=== PATIENT | female | born 1950 | race Caucasian/White ===

== ENCOUNTER 2016-06-25 19:48 | Emergency (ER) | payer MEDICARE ==
--- NOTE | 2016-06-25 20:18 | ED.PDOC ---
History of Present Illness - General Chief Complaint: Abdominal Pain Stated Complaint: abd pain, low back pain Time Seen by Provider: 06/25/16 20:18 Information Source: patient Exam Limitations: no limitations - History of Present Illness Initial Comments: Precious Andrew 65 y/o female stated that she had squeezing RLQ pain radn to her llq for the last 4 days no nausea/vomiting was able to eat no dysuria,no diarrhea, no constipation. Abdominal Pain Onset Location: RLQ Pain Radiation: LLQ Quality: intermittent, vague Timing/Duration: other - 4 days ago Improving Factors: nothing Worsening Factors: nothing Associated Symptoms: nausea/vomiting - x 1 Review of Systems - Review of Systems Constitutional: States: no symptoms reported EENTM: States: no symptoms reported Respiratory: States: no symptoms reported Cardiology: States: no symptoms reported Gastrointestinal/Abdominal: States: see HPI Genitourinary: States: no symptoms reported Musculoskeletal: States: no symptoms reported Skin: States: no symptoms reported Neurological: States: no symptoms reported Endocrine: States: no symptoms reported Hematologic/Lymphatic: States: no symptoms reported Past Medical History (General) - Patient Medical History Hx Seizures: No Hx Stroke: No Hx Dementia: No Hx Asthma: No Hx of COPD: No Hx Cardiac Disorders: Yes Hx Congestive Heart Failure: No Hx Pacemaker: Yes - Pcmkr/Defib Hx Hypertension: Yes Hx Thyroid Disease: No Hx Diabetes: Yes Hx Gastroesophageal Reflux: No Hx Renal Disease: No Hx Cancer: No Hx of HIV: No Hx Hepatitis C: No Hx MRSA: No Hx Other PMH: Yes - rheumatoid arthritis Surgical History: tonsillectomy, Hysterectomy, other - knee,hysterectomy - Vaccination History Hx Tetanus, Diphtheria Vaccination: Yes Hx Influenza Vaccination: Yes Hx Pneumococcal Vaccination: Yes - Social History Hx Tobacco Use: No Hx Alcohol Use: No Hx Substance Use: No Hx Substance Use Treatment: No Hx Depression: Yes Hx Physical Abuse: No Hx Emotional Abuse: No - Female History Patient : No Family Medical History - Family History Father Family History: Unknown Living Status: Hx Cardiac Disease: Yes Hx Family Cancer: Yes - colon Hx Family;Other: brother with RA Mother Family History: Unknown Hx Family Cancer: Yes - colon -dad Physical Exam - Physical Exam General Appearance: Alert, Comfortable, No apparent distress Eyes, Ears, Nose, Throat Exam: PERRL/EOMI, normal ENT inspection, TMs normal Neck: non-tender, full range of motion, supple Respiratory: chest non-tender, lungs clear, normal breath sounds Cardiovascular/Chest: normal peripheral pulses, regular rate, rhythm, no edema, no gallop, no murmur Peripheral Pulses: No deficit Gastrointestinal/Abdominal: normal bowel sounds, soft, no organomegaly, tenderness - RLQ no peritoneal signs Back Exam: normal inspection, no CVA tenderness Extremity: non-tender, other - multiple bony deformities fingers both hands Neurologic: no motor/sensory deficits, alert, normal mood/affect, oriented x 3 Skin Exam: normal color, warm/dry Lymphatic: no adenopathy Special Observations: No evidence of discomfort Progress - Results/Orders Results/Orders: Vital Signs - 8 hr 06/25/16 06/25/16 06/25/16 20:11 21:25 22:37 Temperature 99.3 F Pulse Rate [ 95 H 86 91 H left] Respiratory 18 18 20 Rate Blood Pressure 124/85 151/87 153/84 [left] O2 Sat by Pulse 98 95 97 Oximetry 06/25/16 20:22 IV Care:Saline Lock per Protoc QSHIFT 06/25/16 21:08 URINE CULTURE W/COLONY COUNT Stat 06/25/16 23:09 URINE CULTURE W/COLONY COUNT Stat 06/25/16 23:10 Meropenem [Merrem] 500 mg Sodium Chl 0.9% 50Ml Min-Bag+ [NS 50ml MINI-BAG+] 50 ml IVPB ONCE Laboratory Results WBC 11.7 K/mm3 (4.8-10.8) H 06/25/16 20:21 RBC 4.62 M/mm3 (4.20-5.40) 06/25/16 20:21 Hgb 13.6 gm/dL (12.0-16.0) 06/25/16 20:21 Hct 41.2 % (36.0-47.0) 06/25/16 20:21 MCV 89.2 fl (81.0-99.0) 06/25/16 20:21 MCH 29.3 pg (27.0-31.0) 06/25/16 20:21 MCHC 32.9 g/dL (33.0-37.0) L 06/25/16 20:21 RDW 15.4 % (11.5-14.5) H 06/25/16 20:21 Plt Count 274 K/mm3 (130-400) 06/25/16 20:21 MPV 7.1 fl (7.40-10.4) L 06/25/16 20:21 Absolute Neuts (auto) 8.00 K/uL (1.8-6.8) H 06/25/16 20:21 Absolute Lymphs (auto) 2.50 K/uL (1.0-3.4) 06/25/16 20:21 Absolute Monos (auto) 1.00 K/uL (0.2-0.8) H 06/25/16 20:21 Absolute Eos (auto) 0.20 K/uL (0.0-0.4) 06/25/16 20: Absolute Basos (auto) 0.10 K/uL (0.0-0.1) 06/25/16 20:21 Neutrophils % 68.2 % (42.0-78.0) 06/25/16 20:21 Lymphocytes % 21.3 % (20.0-50.0) 06/25/16 20:21 Monocytes % 8.4 % (2.0-9.0) 06/25/16 20:21 Eosinophils % 1.4 % (1.0-5.0) 06/25/16 20: Basophils % 0.7 % (0.0-2.0) 06/25/16 20:21 Sodium 138 mmol/L (135-145) 06/25/16 20:21 Potassium 3.5 mmol/L (3.6-5.0) L 06/25/16 20:21 Chloride 102 mmol/L (101-111) 06/25/16 20:21 Carbon Dioxide 27 mmol/L (21-31) 06/25/16 20:21 Anion Gap 12.5 (12-18) 06/25/16 20:21 BUN 16 mg/dL (7-18) 06/25/16 20:21 Creatinine 0.83 mg/dL (0.6-1.3) 06/25/16 20:21 BUN/Creatinine Ratio 19.3 (10-20) 06/25/16 20:21 Random Glucose 121 mg/dL (70-105) H 06/25/16 20:21 Serum Osmolality 278.1 mOsm/L (275-295) 06/25/16 20:21 Calcium 9.0 mg/dL (8.4-10.2) 06/25/16 20:21 Total Bilirubin 0.5 mg/dL (0.2-1.0) 06/25/16 20:21 AST 20 IU/L (10-42) 06/25/16 20:21 ALT 13 IU/L (10-60) 06/25/16 20:21 Alkaline Phosphatase 49 IU/L (42-121) 06/25/16 20:21 Serum Total Protein 7.9 gm/dL (6.4-8.2) 06/25/16 20:21 Albumin 3.6 g/dl (3.2-5.5) 06/25/16 20:21 Globulin 4.3 gm/dL (2.3-3.5) H 06/25/16 20:21 Albumin/Globulin Ratio 0.8 (1.1-1.9) L 06/25/16 20:21 Urine Color Yellow (Yellow) 06/25/16 21:08 Urine Appearance Cloudy (Clear) 06/25/16 21:08 Urine pH 5.5 (4.5-7.8) 06/25/16 21:08 Ur Specific [place] 1.020 (1.005-1.030) 06/25/16 21:08 Urine Protein 100 mg/dL H 06/25/16 21:08 Urine Glucose (UA) Negative mg/dL (Negative) 06/25/16 21:08 Urine Ketones Negative mg/dL (NEGATIVE) 06/25/16 21:08 Urine Blood Large (Negative) H 06/25/16 21:08 Urine Nitrite Positive H 06/25/16 21:08 Urine Bilirubin Negative (NEGATIVE) 06/25/16 21:08 Urine Urobilinogen 0.2 mg/dL (0.2-1.0) 06/25/16 21:08 Ur Leukocyte Esterase Small (Negative) H 06/25/16 21:08 Urine RBC 20-30 /hpf H 06/25/16 21:08 Urine WBC Tntc /hpf H 06/25/16 21:08 Ur Epithelial Cells 10-20 /hpf 06/25/16 21:08 Urine Bacteria 4+ H 06/25/16 21:08 Departure - Departure Clinical Impression: Abdominal pain Qualifiers: Abdominal location: right lower quadrant Qualified Code(s): R10.31 - Right lower quadrant pain Urinary tract infection Qualifiers: Urinary tract infection type: site unspecified Hematuria presence: with hematuria Qualified Code(s): N39.0 - Urinary tract infection, site not specified Time of Disposition: 23:41 Disposition: Discharge to Home or Self Care Condition: Fair Departure Forms: ED Discharge - Pt. Copy, Patient Portal Self Enrollment Instructions: DI for Abdominal Pain-Adult Referrals: Ady Sahu MD [Primary Care Provider] - 1-2 Weeks Prescriptions: Nitrofurantoin Monohydrate Mac [Macrobid] 100 mg PO BID #20 cap Home Medications: Ambulatory Orders Aspirin [Aspir-81] 81 mg PO DAILY 02/08/12 Citalopram Hydrobromide [Celexa] 40 mg PO DAILY 02/08/12 Meloxicam [Mobic] 15 mg PO DAILY 02/08/12 Prednisone 5 mg PO DAILY PRN 02/08/12 Methotrexate Sodium [Methotrexate] 20 mg PO WKLY 08/03/13 Gabapentin 300 mg PO TID 04/22/14 Nitrofurantoin Monohydrate Mac [Macrobid] 100 mg PO BID #20 cap 06/25/16 Nitroglycerin [Nitrostat] 1 ea SL PRN PRN 06/25/16 Additional Instructions: RETURN TO EMERGENCY ROOM NEEDED;FOLLOW UP WITH PRIMARY MD 06/27/2016 patient to call for appointment
--- NOTE | 2016-06-25 20:37 | RAD ---
EXAM: Single view chest. INDICATION: Chest pain. COMPARISON: Chest x-ray: 05/24/2014. FINDINGS: Cardiac silhouette: Mildly enlarged Oksana: Unremarkable. Lobar consolidation: None. Pleural effusion: None. Pneumothorax: None. Other: None. Bones: Unremarkable. Other: None. IMPRESSION: 1. No acute cardiopulmonary process. Electronically signed by: Ash Rodrigues MD 06/25/2016 8:36 PM CDT
[2016-06-25] MEDS ORDERED: MEROPENEM 500 MG in SODIUM CHL 0.9% 50ML MIN-BAG+ 50 ML IVPB ONE (23:10)
[2016-06-25] MEDS ORDERED: SODIUM CHL 0.9% 50ML MIN-BAG+ 50 ML IVPB ONE (23:37)
[2016-06-25] MEDS ORDERED: MEROPENEM 500 MG VIAL IVPB ONE (23:37)
[2016-06-26] MEDS ORDERED: SODIUM CHLORIDE 0.9% 10 ML VIAL ONE (00:03)
[2016-06-26 00:19] VITALS: BP 123/85; TEMP 98.8; O2SAT 95
== END 2016-06-26 00:19 | disposition home or self-care (01) ==
LOC: ER 19:48
DX: N39.0 Urinary tract infection, site not specified (principal); M06.9 Rheumatoid arthritis, unspecified; I10 Essential (primary) hypertension; E11.9 Type 2 diabetes mellitus without complications; Z95.810 Presence of automatic (implantable) cardiac defibrillator
CPT/HCPCS: 71010; 80053; 81001; 85025; 87086; 87088; 87186; J2185; J7050

== ENCOUNTER 2017-01-26 18:47 | Emergency (ER) | payer MEDICARE ==
[2017-01-26 19:10] VITALS: TEMP 97.2
[2017-01-26] MEDS ORDERED: FLUCONAZOLE 100 MG TAB PO ONE (19:18)
--- NOTE | 2017-01-26 19:32 | RAD ---
EXAM DESCRIPTION: Chest,1 View CLINICAL HISTORY: body aches, ra COMPARISON: 06/25/2016 FINDINGS: Cardiac silhouette is within normal limits. There is no focal parenchymal or pleural disease. Visualized osseous structures are within normal limits. IMPRESSION: No evidence of acute cardiopulmonary disease. Electronically signed by: Osvaldo Degroot 01/26/2017 7:30 PM [employer]
[2017-01-26] MEDS ORDERED: SODIUM CHLORIDE 0.9% 1000ML 1,000 ML IVS ONE (19:55)
[2017-01-26] MEDS ORDERED: MAGNESIUM SULFATE PREMIX 2GM 2 GM in PREMIX BAG 1 BAG IVPB ONE (19:55)
[2017-01-26] MEDS ORDERED: predniSONE 20 MG TAB PO ONE (19:55)
[2017-01-26] MEDS ORDERED: MAGNESIUM SULFATE PREMIX 2GM 50 ML IVPB ONE (20:02)
--- NOTE | 2017-01-26 20:15 | ED.PDOC ---
History of Present Illness - General Chief Complaint: Back Pain or Injury Stated Complaint: generalized pain Time Seen by Provider: 01/26/17 18:54 Source: patient Exam Limitations: no limitations - History of Present Illness Initial Comments: the patient is a 66-year-old female presenting to the emergency room secondary to 2 weeks of symptoms area symptoms started as a cough congestion with a mild sore throat. The patient does have rheumatoid arthritis and does take immunosuppressants of prednisone 5 mg daily and methotrexate weekly. She has had some aphthous ulcers in her mouthfor the last week. She has not been taking her folic acid for the last 10 days. No other focal symptoms other than a flare of her rheumatoid pains. Timing/Duration: unsure Severity: moderate Improving Factors: nothing Worsening Factors: movement Associated Symptoms: diaphoresis, fever/chills, loss of appetite, malaise, weakness Allergies/Adverse Reactions: Allergies Penicillins Allergy (Verified 06/25/16 20:15) Home Medications: Ambulatory Orders Aspirin [Aspir-81] 81 mg PO DAILY 02/08/12 Citalopram Hydrobromide [Celexa] 40 mg PO DAILY 02/08/12 Meloxicam [Mobic] 15 mg PO DAILY 02/08/12 Prednisone 5 mg PO DAILY PRN 02/08/12 Methotrexate Sodium [Methotrexate] 20 mg PO WKLY 08/03/13 Gabapentin 300 mg PO TID 04/22/14 Nitrofurantoin Monohydrate Mac [Macrobid] 100 mg PO BID #20 cap 06/25/16 Nitroglycerin [Nitrostat] 1 ea SL PRN PRN 06/25/16 Levofloxacin [Levaquin] 250 mg PO DAILY #5 tablet 01/26/17 predniSONE 20 mg PO DAILY #5 tab 01/26/17 Review of Systems - Review of Systems Constitutional: States: chills, fever, malaise, weakness EENTM: States: nose congestion, throat pain Respiratory: States: cough - mild Cardiology: States: no symptoms reported Gastrointestinal/Abdominal: States: nausea - mild Genitourinary: States: no symptoms reported Musculoskeletal: States: back pain, joint pain, joint swelling, muscle pain Skin: States: no symptoms reported Neurological: States: anxiety, weakness - eneralized Endocrine: States: intolerance to cold All other Systems: No Change from Baseline Past Medical History (General) - Patient Medical History Hx Seizures: No Hx Stroke: No Hx Dementia: No Hx Asthma: No Hx of COPD: No Hx Cardiac Disorders: Yes Hx Congestive Heart Failure: No Hx Pacemaker: No Hx Hypertension: Yes Hx Thyroid Disease: No Hx Diabetes: No Hx Gastroesophageal Reflux: No Hx Renal Disease: No Hx Cancer: No Hx of HIV: No Hx Hepatitis C: No Hx MRSA: No Surgical History: tonsillectomy, Hysterectomy, other - Vaccination History Hx Tetanus, Diphtheria Vaccination: No Hx Influenza Vaccination: No Hx Pneumococcal Vaccination: Yes Immunizations Up to Date: Yes - Social History Hx Tobacco Use: No Hx Alcohol Use: No Hx Substance Use: No Hx Substance Use Treatment: No Hx Depression: Yes Hx Physical Abuse: No Hx Emotional Abuse: No - Female History Patient : No Family Medical History - Family History Father Family History: Unknown Living Status: Hx Cardiac Disease: Yes Hx Family Cancer: Yes - colon Hx Family;Other: brother with RA Mother Family History: Unknown Hx Family Cancer: Yes - colon -dad Physical Exam - Physical Exam General Appearance: Alert, Anxious, No apparent distress Eye Exam: bilateral normal Ears, Nose, Throat: hearing grossly normal, other - the patient may have a small amount of thrush present. She does have several aphthous ulcers. Neck: supple Respiratory: lungs clear, normal breath sounds, no respiratory distress, no accessory muscle use Cardiovascular/Chest: normal peripheral pulses, regular rate, rhythm, no edema Peripheral Pulses: radial,right: 2+, radial,left: 2+, dorsalis pedis,right: 2+, dorsalis pedis,left: 2+ Gastrointestinal/Abdominal: non tender, soft Rectal Exam: deferred Back Exam: other - diffuse chronic back discomfort no evidence of any trauma Extremity: no pedal edema, normal capillary refill, other - chronic changes from rheumatoid arthritis. No acute changes. Neurologic: pairer substandard II-XII nml as tested, alert, normal mood/affect, oriented x 3 Skin Exam: normal color Comments: Vital Signs - 24 hr 01/26/17 01/26/17 19:04 19:15 Temperature 97.2 F L Pulse Rate [ 99 H Left Radial] Respiratory 16 16 Rate Blood Pressure 168/83 [Left Arm] O2 Sat by Pulse 96 Oximetry Progress - Progress Progress: 01/26/17 21:02 the patient is a 66-year-old female presenting with increased myalgias as well as aphthous ulcers and possibly some thrush. She has had some low-grade fevers and is concern for underlying untreated infection given her immunosuppressant use. she is mildly dehydrated and has received a liter of IV fluids. She has a mildly low magnesium and was given 2 g IV. She was given 1 dose of Diflucan for the possibility of mild thrush. She does have a small urinary tract infection and was given 1 dose of oral Levaquin here and will be placed on 4 days additionally has an outpatient. She does need to increase her prednisone dosage to 20 mg daily for the next 4 days and she likely does have some adrenal insufficiency that may be giving her some of her above symptoms. She should follow-up with her primary care doctor early next week. ER warnings were given for any significant worsening. She does need to resume her folic acid immediately. - Results/Orders Results/Orders: Laboratory Tests 01/26/17 01/26/17 01/26/17 19:30 19:30 19:30 WBC 9.0 RBC 4.47 Hgb 13.4 Hct 39.6 MCV 88.5 MCH 30.1 MCHC 33.9 RDW 15.7 H Plt Count 353 MPV 6.5 L Absolute Neuts (auto) 6.20 Absolute Lymphs (auto) 1.70 Absolute Monos (auto) 0.90 H Absolute Eos (auto) 0.20 Absolute Basos (auto) 0.10 Neutrophils % 69.3 Lymphocytes % 18.7 L Monocytes % 9.5 H Eosinophils % 1.8 Basophils % 0.7 Sodium 133 L Potassium 4.0 Chloride 98 L Carbon Dioxide 25 Anion Gap 14.0 BUN 20 H Creatinine 0.87 BUN/Creatinine Ratio 23.0 H Random Glucose 86 Serum Osmolality 268.3 L Calcium 8.8 Magnesium Total Bilirubin 0.7 AST 15 ALT 9 L Alkaline Phosphatase 38 L Creatine Kinase 35 CK-MB (CK-2) 2.0 CK-MB (CK-2) % Not Reportable Troponin I < 0.02 Serum Total Protein 8.1 Albumin 3.3 Globulin 4.8 H Albumin/Globulin Ratio 0.7 L Urine Color Urine Appearance Urine pH Ur Specific [place] Urine Protein Urine Glucose (UA) Urine Ketones Urine Blood Urine Nitrite Urine Bilirubin Urine Urobilinogen Ur Leukocyte Esterase Urine RBC Urine WBC Ur Epithelial Cells Urine Bacteria 01/26/17 01/26/17 19:30 20:14 WBC RBC Hgb Hct MCV MCH MCHC RDW Plt Count MPV Absolute Neuts (auto) Absolute Lymphs (auto) Absolute Monos (auto) Absolute Eos (auto) Absolute Basos (auto) Neutrophils % Lymphocytes % Monocytes % Eosinophils % Basophils % Sodium Potassium Chloride Carbon Dioxide Anion Gap BUN Creatinine BUN/Creatinine Ratio Random Glucose Serum Osmolality Calcium Magnesium 1.6 L Total Bilirubin AST ALT Alkaline Phosphatase Creatine Kinase CK-MB (CK-2) CK-MB (CK-2) % Troponin I Serum Total Protein Albumin Globulin Albumin/Globulin Ratio Urine Color Yellow Urine Appearance Clear Urine pH 5.5 Ur Specific [place] 1.020 Urine Protein Negative Urine Glucose (UA) Negative Urine Ketones 80 H Urine Blood Negative Urine Nitrite Negative Urine Bilirubin Moderate Urine Urobilinogen 0.2 Ur Leukocyte Esterase Negative Urine RBC 0 Urine WBC 3-5 H Ur Epithelial Cells 1-3 Urine Bacteria 2+ H hest x-ray appears benign. Departure - Departure Clinical Impression: Hypomagnesemia, Dehydration UTI (urinary tract infection) Qualifiers: Urinary tract infection type: acute cystitis Hematuria presence: without hematuria Qualified Code(s): N30.00 - Acute cystitis without hematuria Disposition: Discharge to Home or Self Care Condition: Fair Departure Forms: ED Discharge - Pt. Copy, Patient Portal Self Enrollment Instructions: DI for Low Back Pain, Urinary Tract Infection Diet: regular diet Activity: increase activity as tolerated Referrals: Ady Sahu MD [Primary Care Provider] - 1-2 Weeks Prescriptions: Levofloxacin [Levaquin] 250 mg PO DAILY #5 tablet predniSONE 20 mg PO DAILY #5 tab Home Medications: Ambulatory Orders Aspirin [Aspir-81] 81 mg PO DAILY 02/08/12 Citalopram Hydrobromide [Celexa] 40 mg PO DAILY 02/08/12 Meloxicam [Mobic] 15 mg PO DAILY 02/08/12 Prednisone 5 mg PO DAILY PRN 02/08/12 Methotrexate Sodium [Methotrexate] 20 mg PO WKLY 08/03/13 Gabapentin 300 mg PO TID 04/22/14 Nitrofurantoin Monohydrate Mac [Macrobid] 100 mg PO BID #20 cap 06/25/16 Nitroglycerin [Nitrostat] 1 ea SL PRN PRN 06/25/16 Levofloxacin [Levaquin] 250 mg PO DAILY #5 tablet 01/26/17 predniSONE 20 mg PO DAILY #5 tab 01/26/17 Additional Instructions: the patient is a 66-year-old female presenting with increased myalgias as well as aphthous ulcers and possibly some thrush. She has had some low-grade fevers and is concern for underlying untreated infection given her immunosuppressant use. she is mildly dehydrated and has received a liter of IV fluids. She has a mildly low magnesium and was given 2 g IV. She was given 1 dose of Diflucan for the possibility of mild thrush. She does have a small urinary tract infection and was given 1 dose of oral Levaquin here and will be placed on 4 days additionally has an outpatient. She does need to increase her prednisone dosage to 20 mg daily for the next 4 days and she likely does have some adrenal insufficiency that may be giving her some of her above symptoms. She should follow-up with her primary care doctor early next week. ER warnings were given for any significant worsening. She does need to resume her folic acid immediately.
[2017-01-26 20:24] VITALS: O2SAT 97
[2017-01-26] MEDS ORDERED: levoFLOXacin 500 MG TAB PO ONE (20:57)
[2017-01-26 21:24] VITALS: BP 149/85
== END 2017-01-26 21:23 | disposition home or self-care (01) ==
LOC: ER 18:47
DX: N30.00 Acute cystitis without hematuria (principal); E83.42 Hypomagnesemia; E86.0 Dehydration; M06.9 Rheumatoid arthritis, unspecified; I10 Essential (primary) hypertension
CPT/HCPCS: 36415; 71010; 80053; 81001; 82550; 82553; 83735; 84484; 85025; 87040; 87502; J3475; J7030; J7512

== ENCOUNTER 2017-06-05 21:46 | Emergency (ER) | payer MEDICARE ==
[2017-06-05] MEDS ORDERED: MORPHINE SULFATE INJ 10 MG/ML VIAL IV ONE (22:06)
--- NOTE | 2017-06-05 22:10 | ED.PDOC ---
History of Present Illness - General Chief Complaint: Chest Pain/[place] Stated Complaint: CP, RA pain Time Seen by Provider: 06/05/17 22:04 Source: patient Exam Limitations: no limitations - History of Present Illness Timing/Duration: other - SINCE THIS AM Severity/Quality: burning Location: substernal, epigastric, back Chest Pain Radiation: back Activities at Onset: none Prior Chest Pain/Cardiac Workup: other - HAD CATH APPROX 6 YEARS AGO WHICH SHOWED A "BLOCKAGE" BUT WAS NOT SIGN ENOUGH TO STENT. Improving Factors: nothing - HAS NTG BUT HAS . Worsening Factors: nothing Aspirin Treatment Today: no aspirin today Associated Symptoms: diaphoresis Allergies/Adverse Reactions: Allergies Penicillins Allergy (Verified 06/05/17 22:08) Home Medications: Ambulatory Orders Esomeprazole Magnesium [Nexium] 40 mg PO DAILY #15 cap 06/06/17 Review of Systems - Review of Systems Constitutional: Denies: chills, diaphoresis, fever EENTM: States: no symptoms reported Respiratory: Denies: cough, short of breath, wheezing Cardiology: States: chest pain. Denies: palpitations, syncope Gastrointestinal/Abdominal: Denies: abdominal pain, diarrhea, nausea, vomiting Genitourinary: States: no symptoms reported Musculoskeletal: States: no symptoms reported Skin: States: other - DIAPHORESIS Neurological: States: no symptoms reported Endocrine: States: no symptoms reported Hematologic/Lymphatic: States: no symptoms reported Past Medical History (General) - Patient Medical History Hx Seizures: No Hx Stroke: No Hx Dementia: No Hx Asthma: No Hx of COPD: No Hx Cardiac Disorders: Yes Hx Congestive Heart Failure: No Hx Pacemaker: No Hx Hypertension: Yes Hx Thyroid Disease: No Hx Diabetes: No Hx Gastroesophageal Reflux: No Hx Renal Disease: No Hx Cancer: No Hx of HIV: No Hx Hepatitis C: No Hx MRSA: No Surgical History: tonsillectomy, Hysterectomy - Vaccination History Hx Tetanus, Diphtheria Vaccination: No Hx Influenza Vaccination: No Hx Pneumococcal Vaccination: Yes - Social History Hx Tobacco Use: No Hx Alcohol Use: No Hx Substance Use: No Hx Substance Use Treatment: No Hx Depression: Yes Hx Physical Abuse: No Hx Emotional Abuse: No - Female History Patient : No Family Medical History - Family History Father Family History: Unknown Living Status: Hx Cardiac Disease: Yes Hx Family Cancer: Yes - colon Hx Family;Other: brother with RA Mother Family History: Unknown Hx Family Cancer: Yes - colon -dad Physical Exam - Physical Exam General Appearance: Alert, No apparent distress Eyes, Ears, Nose, Throat Exam: PERRL/EOMI, normal ENT inspection Neck: non-tender, full range of motion, supple Respiratory: lungs clear, normal breath sounds Cardiovascular/Chest: no murmur, tachycardia Gastrointestinal/Abdominal: normal bowel sounds, non tender, soft, no organomegaly, other - NO EPIGASTRIC TTP Extremity: normal range of motion, non-tender, normal inspection Neurologic: alert, normal mood/affect Skin Exam: normal color, warm/dry Lymphatic: no adenopathy Progress - Progress Progress: 06/05/17 23:38 STILL HAVING SOME PAIN BUT BETTER AFTER MSO4, WILL TRY SLIDER 06/06/17 00:20 CURRENTLY PAIN FREE AFTER SLIDER. TROP NEG. - EKG/XRAY/CT EKG: Sinus, Tachy - RATE 112, NL AXIS, NL INTERVALS, , no ST T wave changes - NAIP, 05/24/14 XRAY: chest - JEANETTE Departure - Departure Clinical Impression: GERD (gastroesophageal reflux disease) Qualifiers: Esophagitis presence: esophagitis presence not specified Qualified Code(s): K21.9 - Gastro-esophageal reflux disease without esophagitis Hypertension Qualifiers: Hypertension type: essential hypertension Qualified Code(s): I10 - Essential ( primary) hypertension CAD (coronary artery disease) Qualifiers: Coronary Disease-Associated Artery/Lesion type: [place] artery [place] vs. transplanted heart: [place] heart Associated angina: without angina Qualified Code(s): I25.10 - Atherosclerotic heart disease of [place] coronary artery without angina pectoris Time of Disposition: 00:24 Disposition: Discharge to Home or Self Care Condition: Good Departure Forms: ED Discharge - Pt. Copy, Patient Portal Self Enrollment Instructions: DI for Chest Pain, DI for Gastroesophageal Reflux Disease (GERD) Referrals: Ady Sahu MD [Primary Care Provider] - 1-2 Weeks Prescriptions: Esomeprazole Magnesium [Nexium] 40 mg PO DAILY #15 cap Home Medications: Ambulatory Orders Esomeprazole Magnesium [Nexium] 40 mg PO DAILY #15 cap 06/06/17
--- NOTE | 2017-06-05 22:21 | RAD ---
EXAM DESCRIPTION: Chest,1 View CLINICAL HISTORY: CP COMPARISON: 01/26/2017 FINDINGS: Cardiac silhouette is within normal limits. There is no focal parenchymal or pleural disease. Visualized osseous structures are within normal limits. IMPRESSION: No evidence of acute cardiopulmonary disease. Electronically signed by: Osvaldo Degroot 06/05/2017 10:20 PM CDT
[2017-06-05] MEDS ORDERED: ASPIRIN TABLET 325 MG TAB ONE (23:10)
[2017-06-05] MEDS ORDERED: ASPIRIN TABLET 325 MG TAB PO ONE (23:16)
[2017-06-05] MEDS ORDERED: ALUM & MAG HYDROX-SIMETHICONE 30 ML, LIDOCAINE VISCOUS 2% 15 ML PO ONE ×2 (23:36)
[2017-06-05] MEDS ORDERED: ALUM & MAG HYDROX-SIMETHICONE 30 ML UD ONE (23:46)
[2017-06-05] MEDS ORDERED: LIDOCAINE HCL 2% (MOUTH-THROAT) 15 ML UD ONE (23:46)
[2017-06-06] MEDS ORDERED: ACETAMINOPHEN 500 MG TAB ONE (00:51)
[2017-06-06] MEDS ORDERED: ACETAMINOPHEN 500 MG TAB PO ONE (00:58)
[2017-06-06 01:20] VITALS: BP 133/78; O2SAT 98
[2017-06-06 01:21] VITALS: TEMP 99.5
== END 2017-06-06 01:21 | disposition home or self-care (01) ==
LOC: ER 21:46
DX: K21.9 Gastro-esophageal reflux disease without esophagitis (principal); I25.10 Atherosclerotic heart disease of native coronary artery without angina pectoris; I10 Essential (primary) hypertension; Z88.0 Allergy status to penicillin
CPT/HCPCS: 36415; 71045; 80053; 82150; 83690; 84484; 85025; 93005; J2270

== ENCOUNTER 2017-10-09 21:07 | Observation (INO) | payer MEDICARE ==
[2017-10-09] MEDS ORDERED: ONDANSETRON ODT 8 MG TAB SL ONE (21:26)
[2017-10-09] MEDS ORDERED: SODIUM CHLORIDE 0.9% 1000ML 1,000 ML IVS ONE (21:26)
--- NOTE | 2017-10-09 22:19 | RAD ---
EXAM DESCRIPTION: Abdomen Series CLINICAL HISTORY: 67 years Female, n/v 3 weeks COMPARISON: AP chest May 24, 2014 FINDINGS: No consolidation. No pneumothorax. No significant pleural effusion. Cardiomediastinal silhouette is unremarkable. Bowel gas pattern appears nonobstructive. No free intraperitoneal air. Degenerative changes of the lumbar spine noted with dextrocurvature. IMPRESSION: No acute findings. Electronically signed by: Rogerio Byrd MD 10/09/2017 10:18 PM CDT
[2017-10-09] MEDS ORDERED: POTASSIUM CHLORIDE ELIXIR 20 MEQ/15 ML UD PO ONE (22:34)
[2017-10-09] MEDS ORDERED: MAGNESIUM SULFATE PREMIX 4GM 4 GM in PREMIX BAG 1 BAG IVPB ONE (22:34)
[2017-10-09] MEDS ORDERED: SUCRALFATE 1 GM/10 ML 1 GM UD PO ONE (22:35)
[2017-10-09] MEDS ORDERED: PANTOPRAZOLE SODIUM TAB 40 MG PO ONE (22:35)
[2017-10-09] MEDS ORDERED: MAGNESIUM SULFATE 2 GM IVPB ONE (22:49)
[2017-10-09] MEDS ORDERED: KCL 40 MEQ/WATER FOR INJ 100ML 40 MEQ in PREMIX BAG 1 BAG IVPB ONE (23:46)
[2017-10-09] MEDS ORDERED: PANTOPRAZOLE SODIUM IV 40 MG VIAL IV ONE (23:47)
[2017-10-09] MEDS ORDERED: PROMETHAZINE HCL 25 MG TAB PO ONE (23:47)
[2017-10-09] MEDS ORDERED: DEXAMETHASONE INJ 10 MG/ML VIAL IV ONE (23:52)
[2017-10-09] MEDS: methylPREDNISolone SODIUM SUC 40 MG/ML VIAL IV ONE ×2 (23:53→23:58)
--- NOTE | 2017-10-09 23:58 | ED.PDOC ---
History of Present Illness - General Chief Complaint: GI Problem Stated Complaint: vomiting Time Seen by Provider: 10/09/17 21:20 Source: patient Exam Limitations: no limitations - History of Present Illness Initial Comments: the patient is a 67-year-old female presenting to emergency room secondary to 3 weeks of progressive nausea and vomiting. The worst is been over the last few days. She has been unable to hold her medications down or keep herself hydrated. She has some mild epigastric discomfort palpation but no real large amount of abdominal pain otherwise. She denies constipation or diarrhea. No syncope or near syncope. No blood or bile in the vomitus according to her. She does have a history of rheumatoid arthritis and has been on prednisone 5 mg a day for more than 20 years. She denies any fevers. She denies any significant abdominal surgeries. Pain is more epigastric than right upper quadrant. Timing/Duration: unsure Severity: severe Improving Factors: nothing Worsening Factors: eating Associated Symptoms: loss of appetite, malaise, nausea/vomiting, weakness Allergies/Adverse Reactions: Allergies Penicillins Allergy (Verified 06/05/17 22:08) Home Medications: Ambulatory Orders Citalopram Hydrobromide [Citalopram] 10/09/17 Gabapentin [Neurontin] 10/09/17 predniSONE [PredniSONE] 10/09/17 Review of Systems - Review of Systems Constitutional: States: malaise, weakness EENTM: States: no symptoms reported Respiratory: States: no symptoms reported Cardiology: States: no symptoms reported Gastrointestinal/Abdominal: States: abdominal pain, nausea, vomiting. Denies: constipation, diarrhea Genitourinary: States: no symptoms reported Musculoskeletal: States: back pain, joint pain, muscle pain Skin: States: no symptoms reported Neurological: States: weakness Endocrine: States: no symptoms reported All other Systems: No Change from Baseline Past Medical History (General) - Patient Medical History Hx Seizures: No Hx Stroke: No Hx Dementia: No Hx Asthma: No Hx of COPD: No Hx Cardiac Disorders: Yes Hx Congestive Heart Failure: No Hx Pacemaker: No Hx Hypertension: Yes Hx Thyroid Disease: No Hx Diabetes: No Hx Gastroesophageal Reflux: Yes Hx Renal Disease: No Hx Cancer: No Hx of HIV: No Hx Hepatitis C: No Hx MRSA: No Surgical History: tonsillectomy, Hysterectomy - Vaccination History Hx Tetanus, Diphtheria Vaccination: No Hx Influenza Vaccination: No Hx Pneumococcal Vaccination: Yes - Social History Hx Tobacco Use: No Hx Alcohol Use: No Hx Substance Use: No Hx Substance Use Treatment: No Hx Depression: Yes Hx Physical Abuse: No Hx Emotional Abuse: No - Female History Patient is a Female of Child Bearing Age (10 -59 yrs old): No Patient : No Family Medical History - Family History Father Family History: Unknown Living Status: Hx Cardiac Disease: Yes Hx Family Cancer: Yes - colon Hx Family;Other: brother with RA Mother Family History: Unknown Hx Family Cancer: Yes - colon -dad Physical Exam - Physical Exam General Appearance: Alert, Other - vomiting,mild general cushinoid changes are present Eye Exam: bilateral normal Ears, Nose, Throat: hearing grossly normal, normal ENT inspection, normal pharynx Neck: full range of motion Respiratory: lungs clear, normal breath sounds, no respiratory distress, no accessory muscle use Cardiovascular/Chest: normal peripheral pulses, no edema, tachycardia Peripheral Pulses: radial,right: 2+, radial,left: 2+, dorsalis pedis,right: 2+, dorsalis pedis,left: 2+ Gastrointestinal/Abdominal: soft, other - epigastric discomfort palpation Rectal Exam: deferred Back Exam: other - chronic back pain Extremity: no pedal edema, no calf tenderness, normal capillary refill, other - chronic rheumatoid changes 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 She does most likely have a significant gastritis which may be the trigger of this. This has also likely been propagated by some relative adrenal insufficiency. The patient does also have significant hypomagnesemia and hypokalemia. She is unable at this time to tolerate oral potassium for supplementation so IV supplementation will be required over the next 24 hours. The patient has started receiving her IV magnesium sulfate already and will be starting the IV potassium soon. She has received a liter of IV fluids for dehydration. She is also receiving a dose of IV dexamethasone for likely relative adrenal insufficiency, opefully she will be able to resume her prednisone tomorrow at a slightly higher dose.. She has received Protonix and Carafate for suspected gastritis. She did throw Carafate up however. admit for correction of above issues. It will likely take 48 hours in order to control symptoms and adequately correct electrolytes and stabilize her adrenal state. - Results/Orders Results/Orders: 10/09/17 21:25 Telemetry .CONTINUOUS 10/09/17 21:30 EKG STAT sinus tachycardia at 114 bpm. Occasional PACs. No definitive ST segment changes were reviewed in comparison to a completely repolarized baseline. Normal R-wave progression. Normal axis. normal QT interval. Acute abdominal series fails show any definitive pathology. Laboratory Results - last 24 hr 10/09/17 10/09/17 10/09/17 21:57 21:57 21:57 WBC 5.1 RBC 4.44 Hgb 13.8 Hct 41.3 MCV 93.0 MCH 31.1 H MCHC 33.4 RDW 14.3 Plt Count 403 H MPV 6.4 L Absolute Neuts (auto) 3.10 Absolute Lymphs (auto) 1.30 Absolute Monos (auto) 0.50 Absolute Eos (auto) 0.00 Absolute Basos (auto) 0.00 Neutrophils % 62.2 Lymphocytes % 26.3 Monocytes % 10.2 H Eosinophils % 0.8 L Basophils % 0.5 Sodium 140 Potassium 2.6 L Chloride 98 L Carbon Dioxide 30 Anion Gap 14.6 BUN 6 L Creatinine 0.65 BUN/Creatinine Ratio 9.2 L Random Glucose 127 H Serum Osmolality 278.6 Lactic Acid 2.0 Calcium 9.2 Magnesium 1.5 L Total Bilirubin 0.4 AST 17 ALT 8 L Alkaline Phosphatase 48 Creatine Kinase 72 CK-MB (CK-2) 2.4 Troponin I < 0.02 B-Natriuretic Peptide 50.0 Serum Total Protein 8.1 Albumin 3.5 Globulin 4.6 H Albumin/Globulin Ratio 0.8 L Amylase 32 Lipase 35 TSH 1.09 Urine Color Urine Appearance Urine pH Ur Specific [place] Urine Protein Urine Glucose (UA) Urine Ketones Urine Blood Urine Nitrite Urine Bilirubin Urine Urobilinogen Ur Leukocyte Esterase Urine RBC Urine WBC Ur Epithelial Cells Urine Bacteria 10/09/17 22:54 WBC RBC Hgb Hct MCV MCH MCHC RDW Plt Count MPV Absolute Neuts (auto) Absolute Lymphs (auto) Absolute Monos (auto) Absolute Eos (auto) Absolute Basos (auto) Neutrophils % Lymphocytes % Monocytes % Eosinophils % Basophils % Sodium Potassium Chloride Carbon Dioxide Anion Gap BUN Creatinine BUN/Creatinine Ratio Random Glucose Serum Osmolality Lactic Acid Calcium Magnesium Total Bilirubin AST ALT Alkaline Phosphatase Creatine Kinase CK-MB (CK-2) Troponin I B-Natriuretic Peptide Serum Total Protein Albumin Globulin Albumin/Globulin Ratio Amylase Lipase TSH Urine Color Yellow Urine Appearance Clear Urine pH 7.0 Ur Specific [place] 1.010 Urine Protein Negative Urine Glucose (UA) Negative Urine Ketones Negative Urine Blood Negative Urine Nitrite Negative Urine Bilirubin Negative Urine Urobilinogen 0.2 Ur Leukocyte Esterase Negative Urine RBC 0 Urine WBC 0 Ur Epithelial Cells 0 Urine Bacteria 0 Departure - Departure Clinical Impression: Adrenal insufficiency, Dehydration, Hypokalemia, Hypomagnesemia Gastritis Qualifiers: Gastritis type: unspecified gastritis Chronicity: acute Gastritis bleeding: without bleeding Qualified Code(s): K29.00 - Acute gastritis without bleeding Nausea and vomiting Qualifiers: Vomiting type: unspecified Vomiting Intractability: non-intractable Qualified Code(s): R11.2 - Nausea with vomiting, unspecified Disposition: Admit Patient Referrals: Ady Sahu MD [Primary Care Provider] - 1-2 Weeks Home Medications: Ambulatory Orders Citalopram Hydrobromide [Citalopram] 10/09/17 Gabapentin [Neurontin] 10/09/17 predniSONE [PredniSONE] 10/09/17 Decision To Admit - Decistion To Admit Decision to Admit Reason: Medical Nature Decision to Admit Date: 10/10/17 Decision to Admit Time: 00:06
[2017-10-10] MEDS ORDERED: SODIUM CHLORIDE 0.9% (FLUSH) 10 ML SYG IV PRN (00:40)
--- NOTE | 2017-10-10 00:40 | HP ---
SUPERVISING PHYSICIAN: Ioana Adams MD CHIEF COMPLAINT: Nausea and vomiting. HISTORY OF PRESENT ILLNESS: This is a 67-year-old female who came to the Emergency Room with approximately 3 weeks history of nausea and vomiting. She states she first thought she had a virus, but when it did not go away, she became concerned, especially yesterday whenever the nausea and vomiting just would not stop. Therefore, she came to the Emergency Room and had a workup. Her abdominal x-ray was unremarkable, however, her chemistry showed a significant electrolyte imbalance with potassium 2.6, magnesium 1.5. In the Emergency Room, the ER physician attempted to give p.o. potassium, but she did not tolerate this. For that reason, she was given intravenous potassium as well as magnesium and referred for observation for volume replacement as well as antiemetics and electrolyte replacement. Overnight, she has done very well and her vomiting has improved. This morning, she ate some of her clear liquid diet and has tolerated this fairly well. Her potassium is still low on her chemistry. She says she thinks she can tolerate the p.o. potassium today. She has not complained of any actual abdominal pain. No fever, but some intermittent chills for the last several weeks. She said her bowel movements are normal although a little loose because she is not eating a whole lot, but no diarrhea, no blood in her stool. PAST MEDICAL HISTORY: 1. Coronary artery disease, being treated medically. 2. Rheumatoid arthritis. 3. Hypertension. 4. Diabetes, diet controlled. 5. Osteoarthritis. 6. Seasonal allergies. 7. Gastroesophageal reflux disease. 8. Depression. PAST SURGICAL HISTORY: 1. Hysterectomy. 2. Left total knee arthroplasty. 3. Tonsillectomy. CURRENT MEDICATIONS: 1. Prednisone 5 mg daily. 2. Gabapentin 300 mg at bedtime. 3. Citalopram 40 mg p.o. daily. ALLERGIES: PENICILLIN. FAMILY HISTORY: Cancer, coronary artery disease and rheumatoid arthritis. SOCIAL HISTORY: No drinking, no smoking, no illicit drugs. She is . She has several family members that live with her including grandchildren, great -grandchildren and her mother. REVIEW OF SYSTEMS: CONSTITUTIONAL: No fever. Positive chills. No recent weight loss or weight gain. HEENT: No headaches, vision changes, ear pain, nasal congestion or throat pain. RESPIRATORY: No cough, hemoptysis or pleuritic chest pain. CARDIOVASCULAR: No chest pain, palpitations or peripheral edema. GASTROINTESTINAL: Positive for nausea and vomiting. No diarrhea, constipation or abdominal pain. GENITOURINARY: No dysuria, frequency or flank pain. HEMATOLOGIC: No easy bruising and no transfusion reaction. MUSCULOSKELETAL: Positive for joint pain. No muscle cramps or joint swelling. SKIN: No rashes, lesions or wounds. ENDOCRINE: No polydipsia, polyuria or polyphagia. No heat or cold intolerance. NEUROLOGIC: No syncope, paresthesias or seizures. PHYSICAL EXAMINATION: VITAL SIGNS: Blood pressure 145/79. Heart rate 118. Respiratory rate 18. Temperature 98.4. Oxygen saturation 96%. GENERAL: Ms. Andrew is a 67-year-old female who is in no severe distress at this time. HEENT: Normocephalic, atraumatic. Pupils are equal and reactive. No nasal drainage. Throat with moist mucosa. NECK: Supple. Midline trachea. No jugular venous distention. CHEST: Symmetrical with equal rise and fall of the chest with inspiration and expiration. Lung sounds are clear to auscultation bilaterally. CARDIOVASCULAR: Regular rate and rhythm. Normal S1, S2. ABDOMEN: Soft. Positive bowel sounds. GENITOURINARY: Deferred. EXTREMITIES: Lower extremities with no edema. NEUROLOGIC: The patient is alert and oriented. Moves all extremities. Extraocular movements are intact. LABORATORY: Labs and films are as discussed in history of present illness. ASSESSMENT: 1. Nausea and vomiting, possible gastritis. 2. Electrolyte imbalance. 3. Hypertension. 4. Diabetes, diet controlled. 5. History of coronary artery disease without myocardial infarction in the past. 6. Rheumatoid arthritis on chronic prednisone therapy. 7. Tachycardia. PLAN: At this point, her symptoms are a little bit improved. However, she still has an electrolyte imbalance so we will replace her potassium and continue IV fluids. We will have her on a clear liquid diet. We will advance diet as tolerated. Additionally, she is a little bit tachycardic with high blood pressure. It appears that 3 year ago, she was taking Toprol which she no longer takes. I am going to start her on 25 mg Toprol tablet and see how she does with this. Hopefully if she remains stable over the next 24 hours she can leave tomorrow. If she does not have improvement, she may require EGD to evaluate. #[id number] MTDD
[2017-10-10] MEDS ORDERED: ONDANSETRON INJ 4 MG/2 ML VIAL IV PRN (00:42)
[2017-10-10] MEDS ORDERED: PROMETHAZINE HCL INJ 12.5 MG in SODIUM CHLORIDE 0.9% 50ML 50 ML IVPB PRN (00:43)
[2017-10-10] MEDS ORDERED: KCL 40 MEQ/WATER FOR INJ 100ML 100 ML IVPB ONE (00:50)
[2017-10-10] MEDS ORDERED: IV SET AND CAP CHANGE INJ INJ SCH (01:00)
[2017-10-10] MEDS: SODIUM CHLORIDE 0.9% 1000ML 1,000 ML IVS PRN ×3 (01:25→21:57)
[2017-10-10] MEDS ORDERED: POTASSIUM CHLORIDE 20 MEQ TAB PO ONE (08:27)
[2017-10-10] MEDS ORDERED: CITALOPRAM HBR 20 MG TAB ONE (08:52)
[2017-10-10] MEDS: predniSONE 5 MG TAB PO SCH (09:00)
[2017-10-10] MEDS: ACETAMINOPHEN 500 MG TAB PO PRN ×2 (09:00→17:17)
[2017-10-10] MEDS: METOPROLOL SUCCINATE XL 25 MG TAB PO SCH (09:00)
[2017-10-10] MEDS: CITALOPRAM HBR 20 MG TAB PO SCH (09:39)
[2017-10-10] MEDS: PANTOPRAZOLE SODIUM IV 40 MG VIAL IV SCH ×2 (11:54→22:54)
[2017-10-10] MEDS: GABAPENTIN 300 MG CAP PO SCH (20:23)
[2017-10-11] MEDS ORDERED: POTASSIUM CHLORIDE 20 MEQ TAB PO ONE ×2 (09:03→10:55)
[2017-10-11] MEDS: predniSONE 5 MG TAB PO SCH (09:27)
[2017-10-11] MEDS: METOPROLOL SUCCINATE XL 25 MG TAB PO SCH (09:27)
[2017-10-11] MEDS: CITALOPRAM HBR 20 MG TAB PO SCH (09:28)
[2017-10-11] MEDS ORDERED: POTASSIUM CHLORIDE 20 MEQ TAB ONE (09:45)
[2017-10-11] MEDS: PANTOPRAZOLE SODIUM IV 40 MG VIAL IV SCH ×2 (11:01→22:57)
[2017-10-11] MEDS: SODIUM CHLORIDE 0.9% 1000ML 1,000 ML IVS PRN ×2 (11:47→22:16)
--- NOTE | 2017-10-11 11:50 | PN ---
SUPERVISING PHYSICIAN: Ioana Adams MD DATE: 10/11/17 SUBJECTIVE: The patient is lying in bed. She continues complaints of abdominal discomfort. She took her medications and her stomach has some pain, but no nausea and vomiting. She denies chest pain or shortness of breath. OBJECTIVE: VITAL SIGNS: Afebrile. Heart rate 91. Blood pressure 113/66. Respiratory rate 18. O2 saturation is 92% on room air. RESPIRATORY: Essentially clear to auscultation bilaterally. CARDIAC: Regular rate and rhythm. GASTROINTESTINAL: Abdomen is soft, diffusely tender more in the upper left quadrant as well as the epigastric area. Bowel sounds are positive. NEUROLOGIC: Awake, alert and oriented times three. LABORATORY: Potassium continues to be slightly low at 3.4 with magnesium improved to 1.9. Other electrolytes are within normal limits. All other labs and films have been reviewed via the EMR. ASSESSMENT: 1. Nausea and vomiting, most likely due to gastritis. 2. Electrolyte imbalance, specifically hypomagnesemia and hypokalemia. 3. Hypertension. 4. Diabetes. 5. History of coronary artery disease with no myocardial infarction history. 6. Rheumatoid arthritis on chronic prednisone therapy. 7. Tachycardia. PLAN: We will continue present supportive care. I have advanced her diet to full liquid as I do not believe she is ready for a bland diet as she still complains of some abdominal pain. Hopefully we can advance her diet by this evening or security clerk and she can be discharged with followup with Dr. Sahu. I have also given her some potassium supplementation today and I will recheck her labs tomorrow. We will continue to monitor the patient closely and follow as needed. Dr. Adams is the collaborating physician and available for consultation. #[id number] [facility]
[2017-10-11] MEDS: GABAPENTIN 300 MG CAP PO SCH (20:46)
[2017-10-12] MEDS: ACETAMINOPHEN 500 MG TAB PO PRN ×2 (01:35→09:50)
[2017-10-12] MEDS: SODIUM CHLORIDE 0.9% 1000ML 1,000 ML IVS PRN (08:04)
[2017-10-12] MEDS ORDERED: MAGNESIUM SULFATE PREMIX 2GM 2 GM in PREMIX BAG 1 BAG IVPB ONE (08:55)
[2017-10-12] MEDS ORDERED: POTASSIUM CHLORIDE 20 MEQ TAB PO ONE (08:56)
[2017-10-12] MEDS ORDERED: MAGNESIUM SULFATE PREMIX 2GM 50 ML IVPB ONE (09:05)
[2017-10-12] MEDS: predniSONE 5 MG TAB PO SCH (09:11)
[2017-10-12] MEDS: METOPROLOL SUCCINATE XL 25 MG TAB PO SCH (09:11)
[2017-10-12] MEDS: CITALOPRAM HBR 20 MG TAB PO SCH (09:11)
[2017-10-12] MEDS: PANTOPRAZOLE SODIUM IV 40 MG VIAL IV SCH (11:26)
--- NOTE | 2017-10-12 13:47 | DS ---
SUPERVISING PHYSICIAN: Ioana Adams MD DISCHARGE DIAGNOSIS: 1. Nausea and vomiting, most likely due to gastritis. 2. Electrolyte imbalance, specifically hypomagnesemia and hypokalemia. 3. Hypertension. 4. Diabetes. 5. History of coronary artery disease with no myocardial infarction history. 6. Rheumatoid arthritis on chronic prednisone therapy. 7. Tachycardia. HISTORY OF PRESENT ILLNESS: This is a 67-year-old female patient who came to the Emergency Room on the date of admission with approximately 3 week history of nausea and vomiting. She initially thought she had a virus, but when it did not go away, she became concerned and the day prior to admission her nausea and vomiting just would not stop. Therefore, she came to the Emergency Room and had a workup. Her abdominal x-ray was unremarkable, however, her chemistry showed a significant electrolyte imbalance with potassium 2.6, magnesium 1.5. In the Emergency Room, the physician attempted to give p.o. potassium, but she did not tolerate it, so she was given intravenous potassium as well as magnesium and placed in Observation in the hospital for volume replacement, antiemetics and electrolyte replacement. HOSPITAL COURSE: Initially overnight, she did very well and she had no further complaints of nausea or vomiting. She had to have her potassium and magnesium replaced throughout her hospital stay and she will need close followup on discharge of her electrolytes. She has had no diarrhea, no blood in her stool, no further complaints of nausea or vomiting. Her WBCs are normal at 4.7 with hemoglobin and hematocrit stable at 12.1 and 37.3. Her electrolytes this morning showed a sodium of 143 with potassium 3.2, chloride 107. Her magnesium was 1.2. She did receive some magnesium this morning as well as some p.o. potassium supplementation. Her diet was advanced yesterday to clear liquids. She tolerated that well. Today, she has had a bland diet and has had no complaints of nausea or vomiting and has tolerated her diet today without any difficulty. She will be discharged home in stable condition. DISCHARGE PLAN: The patient will be discharged home in stable condition. She is to resume her previous activity and increase it as tolerated. She is to start on a bland diet and advance that as tolerated. She has followup with her primary care physician, Dr. Ady Sahu, on 10/23/17 at 10:45 AM. It is recommended that she have a CMP with magnesium done at that time. I have resumed her home medications. I encouraged her to eat foods high in potassium. She is to return to the hospital or call Dr. Sahu' office for any further problems or complications. DISCHARGE MEDICATIONS: 1. Prednisone. 2. Gabapentin. 3. Citalopram. [facility][id number] [facility]
[2017-10-12 14:37] VITALS: BP 136/76; TEMP 97.5; O2SAT 94
== END 2017-10-12 17:53 | disposition home or self-care (01) ==
LOC: ER 21:07 → MS 10-10 00:37
PROVIDERS: ADMIT Nurse Practitioner; ATTEND Nurse Practitioner Acute Care
DX: E83.42 Hypomagnesemia (principal); E87.6 Hypokalemia; R11.2 Nausea with vomiting, unspecified; E87.8 Other disorders of electrolyte and fluid balance, not elsewhere classified; E86.0 Dehydration; I10 Essential (primary) hypertension; E11.9 Type 2 diabetes mellitus without complications; I25.10 Atherosclerotic heart disease of native coronary artery without angina pectoris; M06.9 Rheumatoid arthritis, unspecified; R00.0 Tachycardia, unspecified; K21.9 Gastro-esophageal reflux disease without esophagitis; F32.9 Major depressive disorder, single episode, unspecified; Z79.52 Long term (current) use of systemic steroids; Z79.899 Other long term (current) drug therapy; Z88.0 Allergy status to penicillin
CPT/HCPCS: 96361 ×4; 96375 ×2; 96376 ×3; J7512 ×3; Q0169; J7030 ×7; J1100; J3475 ×2; J3480; 80048 ×3; 82553; 80053; 36415 ×4; 82150; 81001; 85025 ×3; 82550; 83690; 83735 ×3; 84443; 84484; 83880; 83605; 82533; 74019; 99285; 93005; G0378; 96365

== ENCOUNTER → 2017-10-23 | Outpatient (CLI) | payer MEDICARE | LOC: GMAJ 14:25 | PROVIDERS: ATTEND Family Medicine | DX: E86.0 Dehydration (principal) ==

== ENCOUNTER → 2017-11-22 | Outpatient (CLI) | payer MEDICARE | LOC: GMAJ 10:43 | PROVIDERS: ATTEND Family Medicine | DX: I10 Essential (primary) hypertension (principal) ==

== ENCOUNTER 2018-07-12 15:20 | Emergency (ER) | payer MEDICARE ==
[2018-07-12 15:36] VITALS: O2SAT 96
--- NOTE | 2018-07-12 15:52 | ED.PDOC ---
History of Present Illness - General Chief Complaint: Respiratory Problem Stated Complaint: cough x7 days, low back pain Time Seen by Provider: 07/12/18 15:46 Source: patient Exam Limitations: no limitations - History of Present Illness Comments: patient comes in today for 1 week history of cough. Patient states the cough has not gotten worse but nor has improved. She has occasional productive sputum with green mucousy discharge. She's had some fever early in the course but not for the past several days. Patient has no nausea or vomiting but she did have some bloody hard stools early in the course of the illness. Patient denies any abdominal pain, nausea, vomiting, or blood in her stools currently. Patient states additionally she's had low back pain for the past week. She denies any injury or trauma. She's had no increased activity. The pain is primarily on the right side of her lumbar sacral I that occasionally radiates to the left side. No radiation down her legs. She has chronic peripheral neuropathy but states it has not changed she has no increasing weakness, bladder or bowel incontinence. Patient has taken Tylenol for the pain in her back but nothing else. Patient denies shortness of breath or chest pain but she states that in the past she's had pneumonia is more than once despite having the pneumonia vaccine in 2016. Patient is a past medical history significant for rheumatoid arthritis, glucose intolerance, and coronary artery disease. She's had no history of acute MIs but does have a partial blockage that has not yet required intervention. Timing/Duration: week Cough Quality/Degree: productive cough Possible Cause: occasional episodes Improving Factors: nothing Worsening Factors: movement Associated Symptoms: cough, fever/chills Allergies/Adverse Reactions: Allergies Penicillins Allergy (Verified 10/10/17 01:12) Rash Home Medications: Ambulatory Orders Citalopram Hydrobromide [Citalopram] 40 mg PO DAILY 10/09/17 Gabapentin [Neurontin] 300 mg PO BEDTIME 10/09/17 predniSONE [PredniSONE] 5 mg PO DAILY 10/09/17 Azithromycin [Zithromax Z-Marcelino] 250 mg PO DAILY #6 tab 07/12/18 Cyclobenzaprine HCl [Flexeril] 10 mg PO TID #15 tab 07/12/18 Lisinopril 40 mg PO DAILY 07/12/18 Review of Systems - Review of Systems Constitutional: States: fever, malaise. Denies: chills, weakness EENTM: States: nose congestion. Denies: eye pain, ear pain, throat pain Respiratory: States: cough. Denies: short of breath, wheezing Cardiology: States: no symptoms reported. Denies: chest pain, edema, palpitations Gastrointestinal/Abdominal: States: no symptoms reported, diarrhea. Denies: abdominal pain, nausea, vomiting Genitourinary: States: no symptoms reported Musculoskeletal: States: no symptoms reported Skin: States: no symptoms reported Past Medical History (General) - Patient Medical History Hx Seizures: No Hx Stroke: No Hx Dementia: No Hx Asthma: No Hx of COPD: No Hx Cardiac Disorders: Yes Hx Congestive Heart Failure: No Hx Pacemaker: No Hx Hypertension: Yes - resolved Hx Thyroid Disease: No Hx Diabetes: No Hx Gastroesophageal Reflux: Yes Hx Renal Disease: No Hx Cancer: No Hx of HIV: No Hx Hepatitis C: No Hx MRSA: No Surgical History: tonsillectomy, Hysterectomy, other - Vaccination History Hx Tetanus, Diphtheria Vaccination: No Hx Influenza Vaccination: No - 2017 Hx Pneumococcal Vaccination: Yes - 2015 - Social History Hx Tobacco Use: No Hx Alcohol Use: No Hx Substance Use: No Hx Substance Use Treatment: No Hx Depression: Yes Hx Physical Abuse: No Hx Emotional Abuse: No - Female History Patient : No Family Medical History - Family History Father Family History: Unknown Living Status: Hx Cardiac Disease: Yes - Hx Family Cancer: Yes - colon father Hx Family;Other: brother with RA Mother Family History: Unknown Hx Family Cancer: Yes - colon -dad Physical Exam - Physical Exam General Appearance: Alert, Ill Appearing Eye Exam: bilateral normal ENT Exam: normal ENT inspection, hearing grossly normal, TMs normal, pharynx normal, nasal congestion Neck: non-tender, full range of motion, supple, normal inspection Respiratory: chest non-tender, lungs clear, normal breath sounds, no respiratory distress Cardiovascular/Chest: normal peripheral pulses, regular rate, rhythm, no edema, no gallop, no murmur Gastrointestinal/Abdominal: normal bowel sounds, non tender, soft Extremity: normal range of motion, non-tender Neurologic: alert, oriented x 3 Comments: back with no midline bony tenderness, tight muscles on right para spinal area lumbar spine without trigger point or deformity. Progress - Results/Orders Results/Orders: Laboratory Results WBC 8.3 K/mm3 (4.8-10.8) 07/12/18 14:08 RBC 4.53 M/mm3 (4.20-5.40) 07/12/18 14:08 Hgb 14.0 gm/dL (12.0-16.0) 07/12/18 14:08 Hct 43.4 % (36.0-47.0) 07/12/18 14:08 MCV 95.8 fl (81.0-99.0) 07/12/18 14:08 MCH 31.0 pg (27.0-31.0) 07/12/18 14:08 MCHC 32.3 g/dL (33.0-37.0) L 07/12/18 14:08 RDW 13.9 % (11.5-14.5) 07/12/18 14:08 Plt Count 385 K/mm3 (130-400) 07/12/18 14:08 MPV 6.6 fl (7.40-10.4) L 07/12/18 14:08 Absolute Neuts (auto) 4.90 K/uL (1.8-6.8) 07/12/18 14:08 Absolute Lymphs (auto) 2.50 K/uL (1.0-3.4) 07/12/18 14:08 Absolute Monos (auto) 0.80 K/uL (0.2-0.8) 07/12/18 14:08 Absolute Eos (auto) 0.10 K/uL (0.0-0.4) 07/12/18 14:08 Absolute Basos (auto) 0.00 K/uL (0.0-0.1) 07/12/18 14:08 Neutrophils % 59.0 % (42.0-78.0) 07/12/18 14:08 Lymphocytes % 29.7 % (20.0-50.0) 07/12/18 14:08 Monocytes % 9.6 % (2.0-9.0) H 07/12/18 14:08 Eosinophils % 1.3 % (1.0-5.0) 07/12/18 14:08 Basophils % 0.4 % (0.0-2.0) 07/12/18 14:08 Sodium 141 mmol/L (135-145) 07/12/18 14:08 Potassium 3.6 mmol/L (3.6-5.0) 07/12/18 14:08 Chloride 104 mmol/L (101-111) 07/12/18 14:08 Carbon Dioxide 23 mmol/L (21-31) 07/12/18 14:08 Anion Gap 17.6 (12-18) 07/12/18 14:08 BUN 14 mg/dL (7-18) 07/12/18 14:08 Creatinine 0.77 mg/dL (0.6-1.3) 07/12/18 14:08 BUN/Creatinine Ratio 18.2 (10-20) 07/12/18 14:08 Random Glucose 106 mg/dL (70-105) H 07/12/18 14:08 Serum Osmolality 282.1 mOsm/L (275-295) 07/12/18 14:08 Calcium 9.0 mg/dL (8.4-10.2) 07/12/18 14:08 Total Bilirubin 0.5 mg/dL (0.2-1.0) 07/12/18 14:08 AST 20 IU/L (10-42) 07/12/18 14:08 ALT < 8 IU/L (10-60) L 07/12/18 14:08 Alkaline Phosphatase 43 IU/L (42-121) 07/12/18 14:08 Serum Total Protein 8.3 gm/dL (6.4-8.2) H 07/12/18 14:08 Albumin 3.3 g/dl (3.2-5.5) 07/12/18 14:08 Globulin 5.0 gm/dL (2.3-3.5) H 07/12/18 14:08 Albumin/Globulin Ratio 0.7 (1.1-1.9) L 07/12/18 14:08 Patient Name: RAINA AGUIRRE Gender: Female Date of : 1950 Referring Physician: ARIEL CHRISTIANSON Organization: [facility] Accession Number: [id number] Requested Date: July 12, 2018 15:46 Report Status: Final Requested Procedure: 1 Procedure Description: Chest,2 Views Modality: CR Findings Reporting MD: Vickie Layne Fellow MD: Not available Dictation Time: Heater Operator Helper: Not available Artist Consultant Date: EXAM: XR Chest, 2 Views CLINICAL HISTORY: 67 years old and is Female; cough/hx of pneumonias TECHNIQUE: Frontal and lateral views of the chest. COMPARISON: 06/05/2017 FINDINGS: Limitations: None. Lungs: Stable mild interstitial scarring without consolidation. No pulmonary edema. Pleural space: Unremarkable. No pneumothorax. Heart: Stable prominent cardiac shadow. Mediastinum: Unremarkable. Bones/joints: Unremarkable. IMPRESSION: No acute findings Patient Name: RAINA AGUIRRE Gender: Female Date of : 1950 Referring Physician: ARIEL CHRISTIANSON Organization: [facility] Accession Number: [id number] Requested Date: July 12, 2018 15:46 Report Status: Final Requested Procedure: 1 Procedure Description: Lumbar Spine 3 Views Modality: CR Findings Reporting MD: Vickie Layne Fellow MD: Not available Dictation Time: Heater Operator Helper: Not available Artist Consultant Date: EXAM: XR Lumbar Spine, 2 or 3 Views CLINICAL HISTORY: 67 years old and is Female; pain x 1 week TECHNIQUE: Frontal and lateral views of the lumbar spine. COMPARISON: No relevant prior studies available. FINDINGS: Limitations: None. Vertebrae: There is mild convex right scoliotic curvature of the spine and straightening of the normal lumbar lordosis. There is multilevel moderate facet hypertrophy. Mild multilevel spondylosis present. No acute fracture. Disc spaces: Multilevel moderate to severe disc space narrowing present. Soft tissues: Unremarkable. IMPRESSION: No acute findings. Multilevel moderate to severe chronic changes. Departure - Departure Clinical Impression: Upper respiratory infection Qualifiers: URI type: unspecified URI Qualified Code(s): J06.9 - Acute upper respiratory infection, unspecified Low back pain Qualifiers: Chronicity: acute Back pain laterality: right Sciatica presence: without sciatica Qualified Code(s): M54.5 - Low back pain Disposition: Discharge to Home or Self Care Condition: Fair Departure Forms: ED Discharge - Pt. Copy, Patient Portal Self Enrollment Referrals: Ady Sahu MD [Primary Care Provider] - 1-2 Weeks Prescriptions: Azithromycin [Zithromax Z-Marcelino] 250 mg PO DAILY #6 tab Cyclobenzaprine HCl [Flexeril] 10 mg PO TID #15 tab Home Medications: Ambulatory Orders Citalopram Hydrobromide [Citalopram] 40 mg PO DAILY 10/09/17 Gabapentin [Neurontin] 300 mg PO BEDTIME 10/09/17 predniSONE [PredniSONE] 5 mg PO DAILY 10/09/17 Azithromycin [Zithromax Z-Marcelino] 250 mg PO DAILY #6 tab 07/12/18 Cyclobenzaprine HCl [Flexeril] 10 mg PO TID #15 tab 07/12/18 Lisinopril 40 mg PO DAILY 07/12/18 Additional Instructions: return to ER for shortness of breath, worsening of symptoms. heat and gentle massage to area of back. follow up with PCP on Monday
--- NOTE | 2018-07-12 16:14 | RAD ---
EXAM: XR Chest, 2 Views CLINICAL HISTORY: 67 years old and is Female; cough/hx of pneumonias TECHNIQUE: Frontal and lateral views of the chest. COMPARISON: 06/05/2017 FINDINGS: Limitations: None. Lungs: Stable mild interstitial scarring without consolidation. No pulmonary edema. Pleural space: Unremarkable. No pneumothorax. Heart: Stable prominent cardiac shadow. Mediastinum: Unremarkable. Bones/joints: Unremarkable. IMPRESSION: No acute findings. Electronically signed by: Vickie Layne MD 07/12/2018 4:12 PM CDT
--- NOTE | 2018-07-12 16:15 | RAD ---
EXAM: XR Lumbar Spine, 2 or 3 Views CLINICAL HISTORY: 67 years old and is Female; pain x 1 week TECHNIQUE: Frontal and lateral views of the lumbar spine. COMPARISON: No relevant prior studies available. FINDINGS: Limitations: None. Vertebrae: There is mild convex right scoliotic curvature of the spine and straightening of the normal lumbar lordosis. There is multilevel moderate facet hypertrophy. Mild multilevel spondylosis present. No acute fracture. Disc spaces: Multilevel moderate to severe disc space narrowing present. Soft tissues: Unremarkable. IMPRESSION: No acute findings. Multilevel moderate to severe chronic changes. Electronically signed by: Vickie Layne MD 07/12/2018 4:13 PM CDT
[2018-07-12] MEDS: BENZONATATE PERLES 100 MG CAP PO ONE (16:39)
[2018-07-12] MEDS: CYCLOBENZAPRINE HCL 10 MG TAB PO ONE (16:39)
[2018-07-12] MEDS: KETOROLAC TROMETHAMINE INJ 30 MG/ML VIAL IM ONE (16:41)
[2018-07-12 16:46] VITALS: BP 158/87
[2018-07-12 17:23] VITALS: TEMP 99.1
== END 2018-07-12 17:05 | disposition home or self-care (01) ==
LOC: ER 15:20
DX: J06.9 Acute upper respiratory infection, unspecified (principal); M54.5 Low back pain; M47.817 Spondylosis without myelopathy or radiculopathy, lumbosacral region; F32.9 Major depressive disorder, single episode, unspecified; I25.10 Atherosclerotic heart disease of native coronary artery without angina pectoris; K21.9 Gastro-esophageal reflux disease without esophagitis; M06.9 Rheumatoid arthritis, unspecified; Z79.899 Other long term (current) drug therapy; Z88.0 Allergy status to penicillin; Z87.01 Personal history of pneumonia (recurrent)
CPT/HCPCS: 36415; 71046; 72100; 80053; 85025; J1885

== ENCOUNTER 2018-07-28 17:43 | Emergency (ER) | payer MEDICARE ==
--- NOTE | 2018-07-28 18:11 | ED.PDOC ---
History of Present Illness - General Chief Complaint: General Stated Complaint: muscle cramping, body aches, weakness Time Seen by Provider: 07/28/18 18:10 Source: patient Exam Limitations: no limitations - History of Present Illness Initial Comments: Precious Andrew 67 y/o female stated that she had muscle cramps on both legs while she was resting in bed this afternoon.Denies diarrhea ,taking water pill,N/V.Stated had flu like symptoms last week. Timing/Duration: 4-6 hours Severity: moderate Improving Factors: rest Worsening Factors: movement Associated Symptoms: other - see hpi Allergies/Adverse Reactions: Allergies Penicillins Allergy (Verified 10/10/17 01:12) Rash Home Medications: Ambulatory Orders Citalopram Hydrobromide [Citalopram] 40 mg PO DAILY 10/09/17 Gabapentin [Neurontin] 300 mg PO BEDTIME 10/09/17 predniSONE [PredniSONE] 5 mg PO DAILY 10/09/17 Azithromycin [Zithromax Z-Marcelino] 250 mg PO DAILY #6 tab 07/12/18 Cyclobenzaprine HCl [Flexeril] 10 mg PO TID #15 tab 07/12/18 Lisinopril 40 mg PO DAILY 07/12/18 Review of Systems - Review of Systems Constitutional: States: no symptoms reported EENTM: States: no symptoms reported Respiratory: States: no symptoms reported Gastrointestinal/Abdominal: States: no symptoms reported Genitourinary: States: no symptoms reported Musculoskeletal: States: see HPI Skin: States: no symptoms reported Neurological: States: no symptoms reported Endocrine: States: no symptoms reported Hematologic/Lymphatic: States: no symptoms reported All other Systems: Reviewed and Negative, No Change from Baseline Past Medical History (General) - Patient Medical History Hx Seizures: No Hx Stroke: No Hx Dementia: No Hx Asthma: No Hx of COPD: No Hx Cardiac Disorders: No Hx Congestive Heart Failure: No Hx Pacemaker: No Hx Hypertension: Yes - resolved Hx Thyroid Disease: No Hx Diabetes: No Hx Gastroesophageal Reflux: Yes Hx Renal Disease: No Hx Cancer: No Hx of HIV: No Hx Hepatitis C: No Hx MRSA: No Hx Other PMH: Yes - Rheumatoid Arthritis-has appointment with Cut File Clerk 01 August 2018 Surgical History: tonsillectomy, other - knee;hysterectomy - Vaccination History Hx Tetanus, Diphtheria Vaccination: No Hx Influenza Vaccination: Yes Hx Pneumococcal Vaccination: Yes Immunizations Up to Date: Yes - Social History Hx Tobacco Use: No Hx Alcohol Use: No Hx Substance Use: No Hx Substance Use Treatment: No Hx Depression: No Hx Physical Abuse: No Hx Emotional Abuse: No - Female History Patient is a Female of Child Bearing Age (10 -59 yrs old): No Patient : No Family Medical History - Family History Father Family History: Unknown Living Status: Hx Cardiac Disease: Yes - Hx Family Cancer: Yes - colon father Hx Family;Other: brother with RA Mother Family History: Unknown Hx Family Cancer: Yes - colon -dad Physical Exam - Physical Exam General Appearance: Alert, Comfortable, No apparent distress Eye Exam: bilateral normal Ears, Nose, Throat: hearing grossly normal, normal ENT inspection Neck: non-tender, full range of motion, supple Respiratory: chest non-tender, lungs clear, normal breath sounds Cardiovascular/Chest: normal peripheral pulses, regular rate, rhythm, no murmur Peripheral Pulses: radial,right: 2+, radial,left: 2+ Gastrointestinal/Abdominal: non tender, soft, no organomegaly Back Exam: no CVA tenderness, no vertebral tenderness Extremity: no pedal edema, no calf tenderness, other - bony deformities fingers both hands Neurologic: alert, oriented x 3 Skin Exam: normal color, warm/dry Progress - Progress Progress: 07/28/18 19:45 Vital Signs - 8 hr 07/28/18 07/28/18 17:59 18:44 Temperature 99.0 F 98 F Pulse Rate [ 100 H 101 H monitor] Respiratory 20 22 Rate Blood Pressure 129/93 129/83 [Left Arm] O2 Sat by Pulse 97 96 Oximetry - Results/Orders Results/Orders: 07/28/18 18:11 URINALYSIS Stat 07/28/18 18:54 Magnesium Sulfate Premix 2Gm 2 gm Premix Bag 1 bag IVPB ONCE Laboratory Results - last 24 hr 07/28/18 07/28/18 18:11 18:11 WBC 6.1 RBC 4.36 Hgb 13.6 Hct 41.2 MCV 94.6 MCH 31.3 H MCHC 33.0 RDW 13.9 Plt Count 412 H MPV 6.6 L Absolute Neuts (auto) 3.70 Absolute Lymphs (auto) 1.60 Absolute Monos (auto) 0.80 Absolute Eos (auto) 0.00 Absolute Basos (auto) 0.00 Neutrophils % 60.0 Lymphocytes % 25.5 Monocytes % 13.4 H Eosinophils % 0.7 L Basophils % 0.4 Sodium 137 Potassium 3.6 Chloride 104 Carbon Dioxide 22 Anion Gap 14.6 BUN 10 Creatinine 0.54 L BUN/Creatinine Ratio 18.5 Random Glucose 111 H Serum Osmolality 273.6 L Calcium 8.6 Magnesium 1.4 L Total Bilirubin 0.6 AST 16 ALT < 8 L Alkaline Phosphatase 54 Serum Total Protein 8.0 Albumin 3.1 L Globulin 4.9 H Albumin/Globulin Ratio 0.6 L Departure - Departure Clinical Impression: Muscle cramps, Hypomagnesemia, History of rheumatoid arthritis Time of Disposition: 19:46 Disposition: Discharge to Home or Self Care Condition: Fair Departure Forms: ED Discharge - Pt. Copy, Patient Portal Self Enrollment Referrals: Ady Sahu MD [Primary Care Provider] - 1-2 Weeks Home Medications: Ambulatory Orders Citalopram Hydrobromide [Citalopram] 40 mg PO DAILY 10/09/17 Gabapentin [Neurontin] 300 mg PO BEDTIME 10/09/17 predniSONE [PredniSONE] 5 mg PO DAILY 10/09/17 Azithromycin [Zithromax Z-Marcelino] 250 mg PO DAILY #6 tab 07/12/18 Cyclobenzaprine HCl [Flexeril] 10 mg PO TID #15 tab 07/12/18 Lisinopril 40 mg PO DAILY 07/12/18 Additional Instructions: Need to take Vitamin D-5,000 units daily;continue with Mag-Ox 400 mg daily;Keep appointment with your Cut File Clerk;Continue with all home medications
[2018-07-28] MEDS ORDERED: SODIUM CHLORIDE 0.9% 500ML 500 ML IVS ONE (18:12)
[2018-07-28] MEDS ORDERED: MAGNESIUM SULFATE PREMIX 2GM 2 GM in PREMIX BAG 1 BAG IVPB ONE (18:54)
[2018-07-28] MEDS ORDERED: MAGNESIUM SULFATE PREMIX 2GM 50 ML IVPB ONE (18:58)
[2018-07-28 20:18] VITALS: BP 154/102; TEMP 97.9; O2SAT 95
== END 2018-07-28 20:13 | disposition home or self-care (01) ==
LOC: ER 17:43
DX: R25.2 Cramp and spasm (principal); E83.42 Hypomagnesemia; M06.9 Rheumatoid arthritis, unspecified; K21.9 Gastro-esophageal reflux disease without esophagitis; Z79.899 Other long term (current) drug therapy; Z88.0 Allergy status to penicillin
CPT/HCPCS: 36415; 80053; 83735; 85025; J3475; J7040

== ENCOUNTER 2019-02-08 13:37 | Emergency (ER) | payer MEDICARE ==
--- NOTE | 2019-02-08 14:01 | ED.PDOC ---
History of Present Illness - General Chief Complaint: Neuro Symptoms/Deficits Time Seen by Provider: 02/08/19 13:42 Source: patient, RN notes reviewed, Vital Signs reviewed - History of Present Illness Initial Comments: Patient presents with family for evaluation of syncope. She has had multiple syncopal episodes over the past few weeks. She denies chest pain but does endorse SOB and dyspnea with exertion. She has also noticed that she has syncopal episodes with exertion. She denies abdominal pain but does endorse vomiting and diarrhea. She has also noticed that she cannot stand on her legs too long as they become numb (ongoing for six to seven months now). She states that it has worsened over the past few weeks causing her to lay in bed for extended periods. She has also noticed that she has had fecal incontinence for the past few weeks. She denies any falls or trauma to her back. She has not been taking any of her medications for the past few months or notified her PCP of her back/leg issues for the past few months as she has no income to pay for medications/visits with PCP. Timing/Prior Episodes: recent history Precipitating Factors: none Context: standing, activity Loss of Consciousness: brief (seconds) Current Symptoms: back to normal Allergies/Adverse Reactions: Allergies Penicillins Allergy (Verified 10/10/17 01:12) Rash Home Medications: Ambulatory Orders Citalopram Hydrobromide [Citalopram] 40 mg PO DAILY 10/09/17 Gabapentin [Neurontin] 300 mg PO BEDTIME 10/09/17 predniSONE [PredniSONE] 5 mg PO DAILY 10/09/17 Azithromycin [Zithromax Z-Marcelino] 250 mg PO DAILY #6 tab 07/12/18 Cyclobenzaprine HCl [Flexeril] 10 mg PO TID #15 tab 07/12/18 Lisinopril 40 mg PO DAILY 07/12/18 Review of Systems - Review of Systems Constitutional: Denies: chills, fever Respiratory: States: short of breath. Denies: cough Cardiology: Denies: chest pain Gastrointestinal/Abdominal: Denies: abdominal pain Genitourinary: Denies: frequency Musculoskeletal: States: joint pain - Chronic from RA Skin: Denies: rash Neurological: States: tingling - BLE for 6-7 months Hematologic/Lymphatic: Denies: blood clots Past Medical History (General) - Patient Medical History Hx Seizures: No Hx Stroke: No Hx Dementia: No Hx Asthma: No Hx of COPD: No Hx Cardiac Disorders: No Hx Congestive Heart Failure: No Hx Pacemaker: No Hx Hypertension: Yes - resolved Hx Thyroid Disease: No Hx Diabetes: No Hx Gastroesophageal Reflux: Yes Hx Renal Disease: No Hx Cancer: No Hx of HIV: No Hx Hepatitis C: No Hx MRSA: No - Vaccination History Hx Tetanus, Diphtheria Vaccination: No Hx Influenza Vaccination: Yes Hx Pneumococcal Vaccination: Yes - Social History Hx Tobacco Use: No Hx Alcohol Use: No Hx Substance Use: No Hx Substance Use Treatment: No Hx Depression: No Hx Physical Abuse: No Hx Emotional Abuse: No - Female History Patient : No Physical Exam - Physical Exam General Appearance: Alert, Other - Chronically ill appearing Eyes, Ears, Nose, Throat Exam: PERRL/EOMI Neck: full range of motion, supple Cardiovascular/Respiratory: no M/R/G, normal peripheral pulses, no JVD, normal breath sounds, no respiratory distress, irregularly irregular Gastrointestinal/Abdominal: normal bowel sounds, non tender, soft Extremity: no pedal edema, no calf tenderness 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 EKG was not significant for ischemic changes. She had no focal neurologic deficits on exam. Troponin was WNL. D-dimer was obtained as a screening tool for PE and found to be elevated. CTA of the chest was not significant for PE or dissection. There was no signs of anemia or hepatic injury. There was signs of hypomagnesemia, which patient received 2g. On initial evaluation, CT myelogram was not obtained as I did not want to interfere with possible CTA. After CTA was obtained, there was no chance to obtain myelogram. We are unable to perform MRI at this facility. Therefore, plan was made for transfer. She was discussed with Dr. Angela, who accepted patient. 02/08/19 14:00 Patient evaluated. Lab work ordered. 02/08/19 17:[address] Angela, who accepted patient for transfer. - Results/Orders Results/Orders: 02/08/19 14:00 EKG STAT Laboratory Results WBC 6.6 K/mm3 (4.8-10.8) 02/08/19 14:15 RBC 4.16 M/mm3 (4.20-5.40) L 02/08/19 14:15 Hgb 13.1 gm/dL (12.0-16.0) 02/08/19 14:15 Hct 39.9 % (36.0-47.0) 02/08/19 14:15 MCV 96.0 fl (81.0-99.0) 02/08/19 14:15 MCH 31.4 pg (27.0-31.0) H 02/08/19 14:15 MCHC 32.7 g/dL (33.0-37.0) L 02/08/19 14:15 RDW 17.7 % (11.5-14.5) H 02/08/19 14:15 Plt Count 455 K/mm3 (130-400) H 02/08/19 14:15 MPV 6.8 fl (7.40-10.4) L 02/08/19 14:15 Absolute Neuts (auto) 3.60 K/uL (1.8-6.8) 02/08/19 14:15 Absolute Lymphs (auto) 2.00 K/uL (1.0-3.4) 02/08/19 14:15 Absolute Monos (auto) 0.80 K/uL (0.2-0.8) 02/08/19 14:15 Absolute Eos (auto) 0.10 K/uL (0.0-0.4) 02/08/19 14:15 Absolute Basos (auto) 0.00 K/uL (0.0-0.1) 02/08/19 14:15 Neutrophils % 55.0 % (42.0-78.0) 02/08/19 14:15 Lymphocytes % 31.1 % (20.0-50.0) 02/08/19 14:15 Monocytes % 11.7 % (2.0-9.0) H 02/08/19 14:15 Eosinophils % 1.6 % (1.0-5.0) 02/08/19 14:15 Basophils % 0.6 % (0.0-2.0) 02/08/19 14:15 D-Dimer, Quantitative 1.86 mg/L FEU (0-0.49) H* 02/08/19 14:15 Sodium 136 mmol/L (135-145) 02/08/19 14:15 Potassium 3.7 mmol/L (3.6-5.0) 02/08/19 14:15 Chloride 98 mmol/L (101-111) L 02/08/19 14:15 Carbon Dioxide 22 mmol/L (21-31) 02/08/19 14:15 Anion Gap 19.7 (12-18) H 02/08/19 14:15 BUN 8 mg/dL (7-18) 02/08/19 14:15 Creatinine 0.61 mg/dL (0.6-1.3) 02/08/19 14:15 BUN/Creatinine Ratio 13.1 (10-20) 02/08/19 14:15 Random Glucose 129 mg/dL (70-105) H 02/08/19 14:15 Serum Osmolality 272.0 mOsm/L (275-295) L 02/08/19 14:15 Calcium 9.0 mg/dL (8.4-10.2) 02/08/19 14:15 Magnesium 1.1 mg/dL (1.8-2.5) L 02/08/19 14:15 Total Bilirubin 0.5 mg/dL (0.2-1.0) 02/08/19 14:15 AST 21 IU/L (10-42) 02/08/19 14:15 ALT < 8 IU/L (10-60) L 02/08/19 14:15 Alkaline Phosphatase 48 IU/L (42-121) 02/08/19 14:15 Troponin I < 0.02 ng/mL (0.01-0.05) 02/08/19 14:15 B-Natriuretic Peptide 81.0 pg/ml (0-100) 02/08/19 14:15 Serum Total Protein 7.7 gm/dL (6.4-8.2) 02/08/19 14:15 Albumin 2.7 g/dl (3.2-5.5) L 02/08/19 14:15 Globulin 5.0 gm/dL (2.3-3.5) H 02/08/19 14:15 Albumin/Globulin Ratio 0.5 (1.1-1.9) L 02/08/19 14:15 Reporting MD: Landon Apple Extension Clerk date: Dictation date: EXAM DESCRIPTION: CTA Chest CLINICAL HISTORY: 68 years Female, Syncope. Elevated d- dimer TECHNIQUE: This exam was performed according to our departmental dose- optimization program, which includes automated exposure control, adjustment of the mA and/or kV according to patient size and/or use of iterative reconstruction technique. COMPARISON: Concurrent chest radiograph FINDINGS: The thyroid gland is unremarkable. No axillary adenopathy. Normal caliber thoracic aorta. Coronary artery calcifications. No pericardial effusion. No evidence of acute process in the visualized upper abdomen. No mediastinal adenopathy. No pulmonary embolism. No pneumothorax. No pleural effusion. No focal consolidation or suspicious pulmonary nodule identified. No acute or suspicious osseous abnormality. Scattered degenerative changes present. IMPRESSION: No evidence of acute process in the chest. Specifically no pulmonary embolism. Electronically signed by: Landon Apple MD 02/08/2019 3:58 PM OPERATIONS CLERK - EKG/XRAY/CT EKG: Sinus, Tachy, no ST T wave changes Departure - Departure Clinical Impression: Numbness and tingling of both legs, Prolonged Q-T interval on ECG, Hypomagnesemia Syncope Qualifiers: Syncope type: unspecified Qualified Code(s): R55 - Syncope and collapse Fecal incontinence Qualifiers: Fecal incontinence type: unspecified Qualified Code(s): R15.9 - Full incontinence of feces Time of Disposition: 17:15 Disposition: Transfer to Hospital Condition: Fair Departure Forms: ED Discharge - Pt. Copy, Patient Portal Self Enrollment Referrals: Ady Sahu MD [Primary Care Provider] - 1-2 Weeks Home Medications: Ambulatory Orders Citalopram Hydrobromide [Citalopram] 40 mg PO DAILY 10/09/17 Gabapentin [Neurontin] 300 mg PO BEDTIME 10/09/17 predniSONE [PredniSONE] 5 mg PO DAILY 10/09/17 Azithromycin [Zithromax Z-Marcelino] 250 mg PO DAILY #6 tab 07/12/18 Cyclobenzaprine HCl [Flexeril] 10 mg PO TID #15 tab 07/12/18 Lisinopril 40 mg PO DAILY 07/12/18
--- NOTE | 2019-02-08 14:24 | RAD ---
EXAM DESCRIPTION: Chest,2 Views CLINICAL HISTORY: Syncope COMPARISON: July 12, 2018 FINDINGS: Two-view chest x-ray shows mild enlargement of the cardiac silhouette without pulmonary vascular. The lungs are normally aerated and clear. Costophrenic angles are sharp. Osseous structures are unremarkable IMPRESSION: No radiographic evidence of acute cardiopulmonary disease. Electronically signed by: Brandt Meek MD 02/08/2019 2:23 PM [facility]
[2019-02-08] MEDS ORDERED: MAGNESIUM SULFATE PREMIX 2GM 2 GM in PREMIX BAG 1 BAG IVPB ONE (15:02)
[2019-02-08] MEDS ORDERED: MAGNESIUM SULFATE PREMIX 2GM 50 ML IVPB ONE (15:20)
--- NOTE | 2019-02-08 15:59 | CT ---
EXAM DESCRIPTION: CTA Chest CLINICAL HISTORY: 68 years Female, Syncope. Elevated d-dimer TECHNIQUE: This exam was performed according to our departmental dose-optimization program, which includes automated exposure control, adjustment of the mA and/or kV according to patient size and/or use of iterative reconstruction technique. COMPARISON: Concurrent chest radiograph FINDINGS: The thyroid gland is unremarkable. No axillary adenopathy. Normal caliber thoracic aorta. Coronary artery calcifications. No pericardial effusion. No evidence of acute process in the visualized upper abdomen. No mediastinal adenopathy. No pulmonary embolism. No pneumothorax. No pleural effusion. No focal consolidation or suspicious pulmonary nodule identified. No acute or suspicious osseous abnormality. Scattered degenerative changes present. IMPRESSION: No evidence of acute process in the chest. Specifically no pulmonary embolism. Electronically signed by: Landon Apple MD 02/08/2019 3:58 PM PULMONARY FUNCTION TECHNOLOGIST
[2019-02-08] MEDS ORDERED: DEXAMETHASONE INJ 10 MG/ML VIAL IV ONE (17:19)
[2019-02-08 18:07] VITALS: BP 136/88; TEMP 97.3; O2SAT 94
== END 2019-02-08 18:11 | disposition short-term general hospital (02) ==
LOC: ER 13:37
DX: R55 Syncope and collapse (principal); R15.9 Full incontinence of feces; R20.2 Paresthesia of skin; I45.81 Long QT syndrome; E83.42 Hypomagnesemia; R00.0 Tachycardia, unspecified; R06.02 Shortness of breath; R11.10 Vomiting, unspecified; R19.7 Diarrhea, unspecified; K21.9 Gastro-esophageal reflux disease without esophagitis; Z79.899 Other long term (current) drug therapy; Z88.0 Allergy status to penicillin
CPT/HCPCS: 71046; 71275; 80053; 83735; 83880; 84484; 85025; 85379; 93005; J1100; J3475

== ENCOUNTER → 2019-05-09 | Outpatient (CLI) | payer MEDICARE | LOC: BFHH 08:53 | PROVIDERS: ATTEND Family Medicine | DX: M48.061 Spinal stenosis, lumbar region without neurogenic claudication (principal); M54.16 Radiculopathy, lumbar region; I10 Essential (primary) hypertension; M06.9 Rheumatoid arthritis, unspecified ==

== ENCOUNTER 2019-10-05 01:06 | Emergency (ER) | payer MEDICARE ==
[2019-10-05] MEDS ORDERED: SODIUM CHLORIDE 0.9% (FLUSH) 10 ML SYG IV PRN (01:14)
[2019-10-05] MEDS ORDERED: ONDANSETRON INJ 4 MG/2 ML VIAL IV ONE ×2 (01:16→02:29)
[2019-10-05] MEDS ORDERED: ONDANSETRON INJ 4 MG/2 ML VIAL ONE (01:17)
--- NOTE | 2019-10-05 01:55 | ED.PDOC ---
History of Present Illness - General Chief Complaint: Neuro Symptoms/Deficits Stated Complaint: dizzy, dificulty focusing Time Seen by Provider: 10/05/19 01:31 - History of Present Illness Initial Comments: Pleasant 69 yo F woke up to use the restroom 90 min prior to arrival when she noted she couldn't really focus on anything. Had dizziness, possible room spinning sensation, nausea. Last known normal prior to going to sleep around 9 PM. SYmptoms are constant and not exacerbated with head movement dependent. Never had this before. Denies weakness, difficulty swallowing or slurred speech. is not on blood thinners. no hx of stroke. Patient wheelchair bound due to severe spinal stenosis of lumbar spine. Allergies/Adverse Reactions: Allergies Penicillins Allergy (Verified 10/05/19 03:35) Rash Home Medications: Ambulatory Orders Citalopram Hydrobromide [Citalopram] 40 mg PO DAILY 10/09/17 Gabapentin [Neurontin] 300 mg PO TID 10/09/17 predniSONE [PredniSONE] 5 mg PO PRN 10/09/17 Azithromycin [Zithromax Z-Marcelino] 250 mg PO DAILY #6 tab 07/12/18 Cyclobenzaprine HCl [Flexeril] 10 mg PO TID #15 tab 07/12/18 Review of Systems - Review of Systems Constitutional: Denies: diaphoresis, fever, malaise EENTM: States: blurred vision. Denies: eye pain, tearing, double vision, nose pain, nose congestion, throat pain, throat swelling Respiratory: Denies: cough, orthopnea, short of breath, stridor Cardiology: Denies: chest pain, edema, palpitations, syncope Gastrointestinal/Abdominal: Denies: abdominal pain, constipation, diarrhea, nausea, vomiting Genitourinary: Denies: discharge, dysuria, frequency, hematuria Musculoskeletal: Denies: back pain, joint pain, joint swelling, muscle pain, muscle stiffness Skin: Denies: change in color, rash Neurological: Denies: headache, numbness, paresthesia, pre-existing deficit, seizure, tingling, tremors, weakness Endocrine: Denies: increased hunger, increased thirst, increased urine, unexplained weight gain, unexplained weight loss Hematologic/Lymphatic: Denies: anemia, blood clots, easy bleeding, easy bruising Past Medical History (General) - Patient Medical History Hx Seizures: No Hx Stroke: No Hx Dementia: No Hx Asthma: No Hx of COPD: No Hx Cardiac Disorders: No Hx Congestive Heart Failure: No Hx Pacemaker: No Hx Hypertension: Yes Hx Thyroid Disease: No Hx Diabetes: No - borderline Hx Gastroesophageal Reflux: Yes Hx Renal Disease: No Hx Cancer: No Hx of HIV: No Hx Hepatitis C: No Hx MRSA: No Hx Other - free text: RA, spinal stenosis, Surgical History: other - Vaccination History Hx Tetanus, Diphtheria Vaccination: No Hx Influenza Vaccination: Yes Hx Pneumococcal Vaccination: Yes - Social History Hx Tobacco Use: No Hx Alcohol Use: No - seldom Hx Substance Use: No Hx Substance Use Treatment: No Hx Depression: No Hx Physical Abuse: No Hx Emotional Abuse: No - Female History Patient : No Family Medical History - Family History Father Family History: Unknown Living Status: Hx Cardiac Disease: Yes - Hx Family Cancer: Yes - colon father Hx Family;Other: brother with RA Mother Family History: Unknown Hx Family Cancer: Yes - colon -dad Physical Exam - Physical Exam General Appearance: Alert, Comfortable, No apparent distress Eye Exam: bilateral abnormal EOM - unable for right eye to look all the way lateral, dysconjugate gaze, PERRLA, bilateral other - Convergence insufficiency, abnormal Saccades, confrontational visual field exam normal ENT Exam: normal ENT inspection, hearing grossly normal, TMs normal Neck: non-tender, full range of motion, supple, normal inspection Respiratory: chest non-tender, lungs clear, normal breath sounds, no respiratory distress, no accessory muscle use Cardiovascular/Chest: normal peripheral pulses, regular rate, rhythm, no edema, no gallop, no JVD, no murmur Peripheral Pulses: radial,right: 2+, radial,left: 2+, dorsalis pedis,right: 2+, dorsalis pedis,left: 2+ Gastrointestinal/Abdominal: normal bowel sounds, non tender, soft, no organomegaly, no pulsatile mass Back Exam: normal inspection, no CVA tenderness, no vertebral tenderness Extremities Exam: non-tender, normal range of motion, no evidence of injury, no edema 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 Skin Exam: normal color, warm/dry Progress - Progress Progress: 10/05/19 02:12 EKG shows HR 91, NSR, normal intervals, normal ekg. cxr shows cardiomeagly, but no acute cardiopulmonary pathology. Blood work grossly unremarkable. Concern for possible anerysm pressing on crn 6/4 or midbrain issue. Will get CTA of head and neck. Will most likely need transfer for MRI and further neurological workup. 10/05/19 02:30 CTA head and neck negative for acute vascular pathology. Will call neurology for possible transfer and MRI. Discussed with ED physician in [place], felt like we should transfer somewhere that optho was available. [facility] facility [facility]. Talk to [facility] who felt it was a neurological issue only. Will send to [place] for midbrain MRI, Talked to Dr. Thai Cooper ED who accepted patient for transfer. The data reviewed when caring for this patient included: nurse notes, prior records, etc. The history and assessments from nurses notes were reviewed and considered, and the patient's home medication list was also reviewed and considered. My assessment and the results of testing completed here in the ED were discussed with the patient. All questions were answered, and they express understanding of my assessment and the plan. VSS. patient transferred in stable condition. Marilyn Amaya DO #[id number] 10/05/19 06:49 - Results/Orders Results/Orders: 10/05/19 01:14 IV Care:Saline Lock per Protoc QSHIFT Telemetry .ONCE Sodium Chloride 0.9% (Flush) [Saline Flush Syringe] 10 ml IV PRN PRN 10/05/19 01:15 EKG STAT Pulse Oximetry Assessment DAILY 10/05/19 09:00 Pulse Ox Daily Laboratory Results WBC 9.2 K/mm3 (4.8-10.8) 10/05/19 01:12 RBC 4.23 M/mm3 (4.20-5.40) 10/05/19 01:12 Hgb 13.3 gm/dL (12.0-16.0) 10/05/19 01:12 Hct 39.1 % (36.0-47.0) 10/05/19 01:12 MCV 92.5 fl (81.0-99.0) 10/05/19 01:12 MCH 31.3 pg (27.0-31.0) H 10/05/19 01:12 MCHC 33.9 g/dL (33.0-37.0) 10/05/19 01:12 RDW 14.3 % (11.5-14.5) 10/05/19 01:12 Plt Count 406 K/mm3 (130-400) H 10/05/19 01:12 MPV 7.1 fl (7.40-10.4) L 10/05/19 01:12 Absolute Neuts (auto) 6.20 K/uL (1.8-6.8) 10/05/19 01:12 Absolute Lymphs (auto) 2.40 K/uL (1.0-3.4) 10/05/19 01:12 Absolute Monos (auto) 0.70 K/uL (0.2-0.8) 10/05/19 01:12 Absolute Eos (auto) 0.00 K/uL (0.0-0.4) 10/05/19 01:12 Absolute Basos (auto) 0.00 K/uL (0.0-0.1) 10/05/19 01:12 Neutrophils % 66.8 % (42.0-78.0) 10/05/19 01:12 Lymphocytes % 25.5 % (20.0-50.0) 10/05/19 01:12 Monocytes % 7.2 % (2.0-9.0) 10/05/19 01:12 Eosinophils % 0.1 % (1.0-5.0) L 10/05/19 01:12 Basophils % 0.4 % (0.0-2.0) 10/05/19 01:12 PT 9.9 SECONDS (9.0-10.9) 10/05/19 01:12 INR 1.00 (0.9-1.15) 10/05/19 01:12 PTT (SP) 21.6 SECONDS (21.8-31.6) L 10/05/19 01:12 Sodium 137 mmol/L (135-145) 10/05/19 01:12 Potassium 3.6 mmol/L (3.6-5.0) 10/05/19 01:12 Chloride 99 mmol/L (101-111) L 10/05/19 01:12 Carbon Dioxide 28 mmol/L (21-31) 10/05/19 01:12 Anion Gap 13.6 (12-18) 10/05/19 01:12 BUN 15 mg/dL (7-18) 10/05/19 01:12 Creatinine 0.72 mg/dL (0.6-1.3) 10/05/19 01:12 BUN/Creatinine Ratio 20.8 (10-20) H 10/05/19 01:12 POC Glucose 143 mg/dL (70-105) H 10/05/19 01:24 Random Glucose 139 mg/dL (70-105) H 10/05/19 01:12 Serum Osmolality 276.9 mOsm/L (275-295) 10/05/19 01:12 Calcium 8.8 mg/dL (8.4-10.2) 10/05/19 01:12 Total Bilirubin 0.4 mg/dL (0.2-1.0) 10/05/19 01:12 AST 16 IU/L (10-42) 10/05/19 01:12 ALT 11 IU/L (10-60) 10/05/19 01:12 Alkaline Phosphatase 36 IU/L (42-121) L 10/05/19 01:12 Creatine Kinase 25 IU/L (26-140) L 10/05/19 01:12 CK-MB (CK-2) 1.6 ng/mL (0.0-4.4) 10/05/19 01:12 CK-MB (CK-2) % Not Reportable 10/05/19 01:12 Troponin I < 0.02 ng/mL (0.01-0.05) 10/05/19 01:12 Serum Total Protein 7.9 gm/dL (6.4-8.2) 10/05/19 01:12 Albumin 3.5 g/dl (3.2-5.5) 10/05/19 01:12 Globulin 4.4 gm/dL (2.3-3.5) H 10/05/19 01:12 Albumin/Globulin Ratio 0.8 (1.1-1.9) L 10/05/19 01:12 Stroke Information - Onset of Symptoms Symptoms of Stroke: Abnormal vision Stroke Onset of Symptoms Date: 10/05/19 Stroke Onset of Symptoms Time: 00:30 Departure - Departure 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 Copy, Patient Portal Self Enrollment Home Medications: Ambulatory Orders Citalopram Hydrobromide [Citalopram] 40 mg PO DAILY 10/09/17 Gabapentin [Neurontin] 300 mg PO TID 10/09/17 predniSONE [PredniSONE] 5 mg PO PRN 10/09/17 Azithromycin [Zithromax Z-Marcelino] 250 mg PO DAILY #6 tab 07/12/18 Cyclobenzaprine HCl [Flexeril] 10 mg PO TID #15 tab 07/12/18 Transfer to Outside Facility - Transfer Information Decision to Transfer Date: 10/05/19 Decision to Transfer Time: 02:36 Reason for Transfer: specialized care not available
--- NOTE | 2019-10-05 02:00 | CT ---
CLINICAL HISTORY: stroke protocol COMPARISON: None. TECHNIQUE: CT HEAD WITHOUT IV CONTRAST on 10/05/2019 1:14 AM CDT This exam was performed according to our departmental dose-optimization program, which includes automated exposure control, adjustment of the mA and/or kV according to patient size and/or use of iterative reconstruction technique. FINDINGS: There is no acute hemorrhage, mass effect or midline shift. There is a tiny old lacunar infarct in the left errol. There is no hydrocephalus. There is no significant volume loss for age. The calvarium is intact. Orbits and globes are unremarkable. The paranasal sinuses are clear. Mastoid air cells are clear. IMPRESSION: No acute intracranial findings. Electronically signed by: Steve Horn MD 10/05/2019 1:59 AM CDT
--- NOTE | 2019-10-05 02:01 | RAD ---
CLINICAL HISTORY: stoke protocol COMPARISON: 02/08/2019. TECHNIQUE: XR CHEST 1 VIEW 10/05/2019 1:14 AM CDT FINDINGS: The heart is mildly enlarged. Cardiac monitoring devices within the anterior left para midline chest. Lungs are clear without consolidation, atelectasis, mass or edema. There is no pleural effusion. There is no pneumothorax. There are no acute osseous findings. IMPRESSION: Clear lungs. Electronically signed by: Steve Horn MD 10/05/2019 1:59 AM CDT
--- NOTE | 2019-10-05 03:07 | CT ---
EXAM: 1. CT neck angiography with intravenous contrast. 2. CT head angiography with intravenous contrast. CLINICAL DATA: 69-year-old female with concern for cranial nerve compression. TECHNICAL DATA: Following dynamic intravenous nonionic contrast infusion, multiple axial helical CT images with multiplanar reconstructions were obtained through the head and neck. Coronal and sagittal MIP images were performed. The CT study is performed according to ALARA (as low as reasonably achievable) or ALARA/IMAGE GENTLY, with automatic adjustment of mA and/or kV according to patient size. Performed on: 10/05/2019 2:19 AM COMPARISONS: Head CT performed on 10/05/2019 FINDINGS: CTA NECK: AORTA: The aortic arch is well imaged and demonstrates conventional branching. The origins of the left subclavian artery, left common carotid artery and innominate artery are patent. VERTEBRAL ARTERIES: The LEFT vertebral artery is small in caliber and is normal in contour without evidence of dissection or significant stenosis. The RIGHT vertebral artery is dominant and is normal in contour without evidence of dissection or significant stenosis. CAROTID ARTERIES: The LEFT common carotid artery is unremarkable. There is a retropharyngeal left common carotid artery. There is no evidence of stenosis, dissection or occlusion The carotid bulb demonstrates mild calcified atherosclerotic plaque. The LEFT internal carotid artery is normal in caliber and contour without evidence of significant stenosis, dissection or occlusion. The LEFT external carotid artery is unremarkable. The RIGHT common carotid artery is unremarkable. There is a retropharyngeal right common carotid artery. There is no evidence of stenosis, dissection or occlusion. The carotid bulb demonstrates no significant plaque. The RIGHT internal carotid artery is unremarkable. There is no evidence of stenosis, dissection or occlusion. The RIGHT external carotid artery is unremarkable. CTA HEAD: LEFT: INTERNAL CAROTID ARTERY: The distal internal carotid artery is unremarkable. ANTERIOR CEREBRAL ARTERY:The A1 segment is normal in caliber and contour. The A2 segment is normal in caliber and contour. The region of the anterior communicating artery is unremarkable. MIDDLE CEREBRAL ARTERY: The M1 segment is normal in caliber and contour. The M2 branches normal in caliber and contour. POSTERIOR CEREBRAL ARTERY: There is a origin of the left posterior cerebral artery. The P2 segment is normal in caliber and contour. The left P1 segment is hypoplastic. VERTEBRAL ARTERY: The intradural left vertebral artery is patent and is small in caliber relative to the intradural right vertebral artery. RIGHT: INTERNAL CAROTID ARTERY: The distal internal carotid artery is unremarkable. ANTERIOR CEREBRAL ARTERY: The A1 segment is normal in caliber and contour. The A2 segment is normal in caliber and contour. MIDDLE CEREBRAL ARTERY:The M1 segment is normal in caliber and contour. The M2 branches normal in caliber and contour. POSTERIOR CEREBRAL ARTERY: The P1 segment is normal in caliber and contour. The P2 segment is normal in caliber and contour. The right posterior communicating artery is patent. VERTEBRAL ARTERY: The intradural right vertebral artery is normal in caliber and contour. BASILAR ARTERY: The basilar artery is normal in caliber and contour. DURAL VENOUS SINUSES: The dural venous sinuses are grossly patent but are not well evaluated on this examination. NON-ANGIOGRAPHIC FINDINGS: There is hazy groundglass opacification in the visualized lung apices. This finding is nonspecific. The thyroid gland is normal in size and configuration. There is chronic mucosal thickening with calcification in the left sphenoid sinus possibly related to chronic fungal sinus disease versus chronic inspissated secretions there is mild mucosal thickening of the right ethmoid sinuses. The orbital contents are unremarkable. The cavernous sinus region appear symmetric bilaterally. There are degenerative changes of the cervical spine with straightening and reversal of the normal cervical lordosis at the C4-C5 level. There are no definite findings on this examination to explain the patient's suspected clinical history. IMPRESSION: CTA NECK: 1. The right vertebral artery is dominant. 2. Retropharyngeal common carotid arteries bilaterally. 3. No evidence of a hemodynamically significant stenosis as per the NASCET criteria. 4. Degenerative changes of the cervical spine with straightening and reversal of the normal cervical lordosis at the C4-C5 level. 5. Hazy groundglass opacification in the visualized lung apices. This appearance is nonspecific but could be related to atelectasis, edema or inflammatory changes. CTA HEAD: 1. 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 2. Otherwise, unremarkable intracranial CTA. 3. Chronic sinus disease in the left sphenoid sinus and right anterior ethmoid air cells. 4. No definite findings on this examination to explain the patient's suspected clinical history. Electronically signed by: Candida Kong DO 10/05/2019 3:06 AM CDT
[2019-10-05] MEDS ORDERED: LISINOPRIL 10 MG TAB PO ONE (05:42)
[2019-10-05 05:52] VITALS: BP 167/111; TEMP 96.2; O2SAT 95
== END 2019-10-05 06:10 | disposition short-term general hospital (02) ==
LOC: ER 01:06
DX: H49.02 Third [oculomotor] nerve palsy, left eye (principal); R42 Dizziness and giddiness; I10 Essential (primary) hypertension; R73.03 Prediabetes; K21.9 Gastro-esophageal reflux disease without esophagitis; M06.9 Rheumatoid arthritis, unspecified; M48.061 Spinal stenosis, lumbar region without neurogenic claudication; Z99.3 Dependence on wheelchair; Z79.899 Other long term (current) drug therapy; Z88.0 Allergy status to penicillin
CPT/HCPCS: 70450; 70496; 70498; 71045; 80053; 82550; 82553; 82948; 84484; 85025; 85610; 85730; 93005; J2405

== ENCOUNTER → 2019-11-20 | Outpatient (CLI) | payer MEDICARE | LOC: BFHH 10:54 | PROVIDERS: ATTEND Family Medicine | DX: I10 Essential (primary) hypertension (principal); M06.9 Rheumatoid arthritis, unspecified; G62.9 Polyneuropathy, unspecified; F32.9 Major depressive disorder, single episode, unspecified; I69.398 Other sequelae of cerebral infarction; Z79.02 Long term (current) use of antithrombotics/antiplatelets; Z79.82 Long term (current) use of aspirin; Z79.52 Long term (current) use of systemic steroids ==

== ENCOUNTER → 2019-12-13 | Outpatient (CLI) | payer MEDICARE | LOC: BFHH 12:46 | PROVIDERS: ATTEND Family Medicine | DX: I69.398 Other sequelae of cerebral infarction (principal); I10 Essential (primary) hypertension; M06.9 Rheumatoid arthritis, unspecified; G62.9 Polyneuropathy, unspecified; E03.9 Hypothyroidism, unspecified ==